=== PATIENT | female | born 1940 | race Two or more races ===

== ENCOUNTER → 2017-03-21 | Outpatient (CLI) | payer MEDICARE ==
[2017-03-21 15:06] LABS: Blood Urea Nitrogen 13 mg/dL (7-17); Non-African American GFR(MDRD) >60 (>60 ml/min/1.73 sqM)
--- NOTE | 2017-03-21 16:40 | CT ---
EXAMINATION TYPE: CT abdomen pelvis w con DATE OF EXAM: 03/21/2017 COMPARISON: NONE HISTORY: 76-year-old female incomplete colonoscopy, hx of anemia TECHNIQUE: Contiguous axial scanning of the abdomen and pelvis following administration of 100 ml Omn ipaque 300 IV contrast. Delayed images through the kidneys and coronal/sagittal reconstructions perf ormed. CT DLP: 1541.4 mGycm Automated exposure control for dose reduction was used. FINDINGS: A right ventricular pacer lead is seen. The heart itself is borderline enlarged without pericardial e ffusion. Strandy atelectasis in the lower lungs without pleural effusion. Small hiatal hernia. No focal liver lesion or biliary ductal dilatation. Portal venous system is patent. Gallbladder, adrenal glands,, and mildly atrophic pancreas show no gross abnormal mobility. A few cody cified granulomas within the spleen with a couple small anterior splenules. 1.6 cm cyst in the upper pole right kidney. Subcentimeter hypodensity posterior lower pole left kidne y is too small for accurate CT characterization and could represent an additional cyst. No dilated small bowel, free fluid, or free air. Normal appendix. There is focal fold thickening in t he upper cecum/lower ascending colon, coronal image 31, axial image 40, and sagittal image 30. Oral c ontrast has progressed through the hepatic flexure. Couple diverticula are noted in the sigmoid colon . Mild to moderate atherosclerotic calcifications within the abdominal aorta and iliac arteries. Tiny f atty umbilical hernia. Severe streak and beam hardening artifacts from the patient's bilateral total hip arthroplasties limi ting visualization of the pelvis. There appears to be pelvic floor relaxation with inferior bulging o f the bladder to the level of the introitus remaining pelvic structures are poorly visualized. Bones: There is extensive heterogeneity of the sacrum with diffuse cortical and trabecular thickening and suggestion of some bony expansion. Degenerative changes throughout the visualized spine with gr bri 1 anterolisthesis at L3-L4. There is otherwise, no osseous destructive process seen. IMPRESSION: 1. NO EVIDENCE FOR FREE FLUID OR FREE AIR. 2. FOCAL FOLD THICKENING AT THE JUNCTION OF THE CECUM AND ASCENDING COLON, CORONAL IMAGE 31 AND AXIAL IMAGE 40. DIRECT VISUALIZATION COULD EXCLUDE A NEOPLASTIC ETIOLOGY. IT NOT AMENABLE TO COLONOSCOPY, CONSIDER SHORT INTERVAL FOLLOW-UP CT. 3. ABNORMAL APPEARANCE TO THE BONY SACRUM. THERE IS CORTICAL AND TRABECULAR THICKENING. FINDINGS ARE SUSPICIOUS FOR PAGET'S DISEASE. CORRELATE FOR ANY PRIOR HISTORY OF RADIATION TO THE PELVIS POST RA DIATION THERAPY CHANGE CAN HAVE A SIMILAR APPEARANCE. 4. SMALL HIATAL HERNIA AND TINY FATTY UMBILICAL HERNIA. 5. PELVIC FLOOR RELAXATION WITH CYSTOCELE.
== END | disposition home or self-care (01) ==
LOC: RADCTMAIN 14:43
PROVIDERS: ATTEND Surgery
DX: D64.9 Anemia, unspecified (principal); Z53.8 Procedure and treatment not carried out for other reasons
CPT/HCPCS: 82565; 84520; 74177; Q9967

== ENCOUNTER → 2017-03-21 | Day surgery (SDC) | payer BC, MEDICARE ==
[2017-03-19 12:09] VITALS: BMI 38.5
[~2017-03-21] MED LIST: GLUCAGON 1 MG/ML VIAL ONE; IOHEXOL 350 MG/ML 25 ML BOTTLE (ORAL USE) PO PRN; LACTATED RINGERS 1,000 ML IV SCH; LIDOCAINE 1% 20 ML VIAL (10MG/ML) FOR IV START INTRADERMA ONE; PROPOFOL 10 MG/ML 20 ML VIAL IV ONE; RX INFO: IV CONTRAST WAS GIVEN 1 EACH MISC MISCELLANE PRN
[2017-03-21 11:04] VITALS: RESP 18; TEMP 96.8
--- NOTE | 2017-03-21 12:31 | P.GSHP ---
History of Present Illness H&P Date: 03/21/17 Chief Complaint: Anemia screening colonoscopy This a 76-year-old female who presents today for EGD and colonoscopy. She's never had a colonoscopy before. She's had issues with anemia. Past Medical History Past Medical History: Hyperlipidemia, Hypertension, Osteoarthritis (OA) Additional Past Medical History / Comment(s): SOB, hiatal hernia, anemia, hx slow heart rate History of Any Multi-Drug Resistant Organisms: None Reported Past Surgical History: Hysterectomy, Joint Replacement, Pacemaker Additional Past Surgical History / Comment(s): danielle hip replacement Past Anesthesia/Blood Transfusion Reactions: No Reported Reaction Type of Cardiac Device: Permanent Pacemaker Device Placement Date:: 2014 Smoking Status: Former smoker - Past Family History Mother Family Medical History: Cancer Medications and Allergies Home Medications Medication Instructions Recorded Confirmed Type Allopurinol [Zyloprim] 100 mg PO DAILY 03/19/17 03/21/17 History Atorvastatin [Lipitor] 20 mg PO HS 03/19/17 03/21/17 History Celecoxib [CeleBREX] 200 mg PO DAILY 03/19/17 03/21/17 History Ergocalciferol [Vitamin D2] 25,000 unit PO TU 03/19/17 03/21/17 History Furosemide [Lasix] 40 mg PO DAILY 03/19/17 03/21/17 History Levothyroxine Sodium [Synthroid] 50 mcg PO DAILY 03/19/17 03/21/17 History Potassium Chloride [Klor-Con 20] 20 meq PO DAILY 03/19/17 03/21/17 History amLODIPine [Norvasc] 5 mg PO DAILY 03/19/17 03/21/17 History Allergies Allergy/AdvReac Type Severity Reaction Status Date / Time No Known Allergies Allergy Verified 03/19/17 11:57 Surgical - Exam Vital Signs Temp Pulse Resp BP Pulse Ox 96.8 F L 89 18 174/77 96 03/21/17 10:56 03/21/17 10:56 03/21/17 10:56 03/21/17 10:56 03/21/17 10:56 - General well developed, no distress - Eyes PERRL - ENT normal pinna - Neck no masses - Respiratory normal expansion - Cardiovascular Rhythm: regular - Abdomen Abdomen: soft, non tender Assessment and Plan Plan: Anemia we will perform EGD and initial screening colonoscopy.
--- NOTE | 2017-03-21 12:56 | P.OP ---
Date of Procedure: 03/21/17 Preoperative Diagnosis: Anemia Screening colonoscopy Postoperative Diagnosis: mild antral gastritis Hiatal hernia Mild esophagitis Rectal polyp Incomplete colonoscopy Procedure(s) Performed: EGD Colonoscopy Implants: Anesthesia: MAC Surgeon: Dioni Weinstein Pathology: other (Antrum, esophagus, rectal polyp) Condition: stable Disposition: PACU Indications for Procedure: Operative Findings: Description of Procedure: Patient's placed on the endoscopy table lateral position. She received IV sedation. The gastroscope some placed oropharynx passed into the esophagus and into the stomach. The scope was then placed through the pylorus. The first and second portion duodenum appeared normal. Scope was then brought back and the antrum and this appeared mildly inflamed a biopsies performed. The scope was retroflexed and remainder of the stomach appeared normal. There was a hiatal hernia seen. The GE junction was at 38 cm. The distal esophagus appeared mildly inflamed and a biopsies performed. The proximal esophagus appeared normal. Scope was withdrawn for patient. Next digital rectal exam was performed there were no abnormalities noted. The flexible colonoscope was then placed patient anus in the rectum there is small polyp seen this removed with snare. Scope then advanced the remainder of the rectum and sigmoid colon appeared normal. The scope 90 passed beyond the sigmoid colon secondary to tortuosity the valve. This with the scope was withdrawn and the pediatric scope was reinserted in it to could not be passed beyond the 40 cm sumeet of the colon. Several times made to maneuver the scope however this wasn't possible. At this point scope withdrawn. The sigmoid colon appeared normal. In the rectum the previous biopsy site was visualized. There is no bleeding seen. The scope was withdrawn for patient. The patient was scheduled for a computed tomography scan of the abdomen pelvis.
[2017-03-21 13:30] VITALS: BP 162/73; PULSE 77
== END | disposition home or self-care (01) ==
LOC: ORWHC2ENDO 09:54
PROVIDERS: ATTEND Surgery
DX: Z12.11 Encounter for screening for malignant neoplasm of colon (principal); K29.50 Unspecified chronic gastritis without bleeding; K20.9 Esophagitis, unspecified; D12.8 Benign neoplasm of rectum; K44.9 Diaphragmatic hernia without obstruction or gangrene; Q43.8 Other specified congenital malformations of intestine; D64.9 Anemia, unspecified; E78.5 Hyperlipidemia, unspecified; I10 Essential (primary) hypertension; M19.90 Unspecified osteoarthritis, unspecified site; E07.9 Disorder of thyroid, unspecified; Z95.0 Presence of cardiac pacemaker; Z79.899 Other long term (current) drug therapy; Z87.891 Personal history of nicotine dependence
CPT/HCPCS: 88305; 88342; 43239; 45331; J1610; J2704; 45385

== ENCOUNTER → 2017-06-30 | Outpatient (CLI) | payer MEDICARE ==
[2017-06-30 12:26] LABS: Blood Urea Nitrogen 23 mg/dL (7-17); Non-African American GFR(MDRD) 60 (>60 ml/min/1.73 sqM)
--- NOTE | 2017-06-30 15:36 | CT ---
EXAMINATION TYPE: CT abdomen pelvis w con DATE OF EXAM: 06/30/2017 COMPARISON: March 21, 2017. HISTORY: Colon polyps CT DLP: 1434 mGycm CONTRAST: CT scan of the abdomen and pelvis is performed with Oral Contrast and with IV Contrast, patient injec dimple with 100 ml mL of Omnipaque 300. FINDINGS: LUNG BASES-: No visible nodule. No infiltrate. Small fixed sliding-type hiatal hernia noted. LIVER/GB: No calcified gallstones. The gallbladder is contracted. No space occupying hepatic lesion . Biliary tree is of normal caliber. PANCREAS: No inflammation. No distinct mass. SPLEEN: No splenic enlargement. No lesion seen. Splenic granulomas noted. ADRENALS: No nodule. No thickening. KIDNEYS/BLADDER: No hydronephrosis. No nephrolithiasis. Upper pole right renal cyst measuring 1.4 cm. Urinary bladder grossly unremarkable. BOWEL: Normal appendix. Normal bowel caliber. No inflammation. Persistent wall thickening in the re gion of the cecum. Underlying malignancy is not excluded. Mild scattered fecal stasis. GENITAL ORGANS: No gross abnormality. LYMPH NODES: No greater than 1cm abdominal or pelvic lymph nodes are appreciated. AORTA: No significant abnormality. OSSEOUS STRUCTURES: Stable probable odontoid changes to the sacrum. Bilateral hip prostheses. OTHER: No significant additional abnormality is seen. IMPRESSION: 1. Persistent wall thickening in the region of the cecum. Underlying malignancy is not excluded. 2. Small fixed hiatal hernia. Small umbilical hernia. 3. 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
== END | disposition home or self-care (01) ==
LOC: RADCTMAIN 11:26
PROVIDERS: ATTEND Surgery
DX: K42.9 Umbilical hernia without obstruction or gangrene (principal); K44.9 Diaphragmatic hernia without obstruction or gangrene; K63.89 Other specified diseases of intestine
CPT/HCPCS: 82565; 84520; 74177; 36415; Q9967

== ENCOUNTER → 2018-10-01 | Outpatient (CLI) | payer MEDICARE ==
--- NOTE | 2018-10-01 12:25 | CT ---
EXAMINATION TYPE: CT abdomen pelvis wo/w con DATE OF EXAM: 10/01/2018 COMPARISON: 06/30/2017 HISTORY: Cecal mass CT DLP: 2228 mGycm Automated exposure control for dose reduction was used. CONTRAST: CT scan of the abdomen pelvis is performed without and with IV Contrast, patient injected with 100 mL of Isovue 300. FINDINGS- LUNG BASES-the heart is enlarged and there are cardiac leads pleural-based nodule right middle lobe i mage 4 2 mm.. LIVER/GB- No gross abnormality is appreciated. PANCREAS- No gross abnormality is seen. SPLEEN-splenic granuloma incidentally noted. Accessory spleen noted.. ADRENALS- No gross abnormality is seen. KIDNEYS/BLADDER-there are hypodensities involving the kidneys bilaterally majority which are too smal l to characterize. The largest is seen in the upper pole measuring greater than a centimeter and 7 Ho unsfield units compatible with a simple cyst. There is a exophytic lesion off the lower pole the left kidney which does not meet the criteria of a simple cyst measuring 7 mm retrospectively stable from the exam of 2017 and 2016.. BOWEL-there is a large area of concentric wall thickening involving the right colon suspicious for a colonic neoplasm.. LYMPH NODES-there is a soft tissue conglomerate adjacent to the suspected cecal mass compatible with numerous lymph nodes the largest which measures 2.9 x 1.4 cm compatible with pathologic adenopathy. OSSEOUS STRUCTURES-assessment the pelvis limited by extreme artifact from bilateral hip prostheses. M ultilevel severe degenerative disc disease of the vertebral column. Lucency involving the sacrum is n oted is retrospectively stable on multiple prior exams. Scoliotic curvature noted. OTHER- atherosclerotic change of the aorta. No diagnostic evidence of aneurysm. Atherosclerotic harper ge of the mesenteric vasculature. Tiny fat-containing umbilical hernia noted. Correlate for cystocele . Stable deformity of a lower posterolateral rib likely the basis of remote trauma. IMPRESSION- 1. Right colonic mass near the junction of the cecum and ascending colon with adjacent pathologic bri nopathy. Correlate for history of malignancy. 2. Abnormal appearance of the bony sacrum is stable dating back to 2017. Lucent changes with cortical disruption are stable. Could be on the basis of previous irradiation, Paget's disease or bony metast ases. Correlate clinically. 3. 2 mm subpleural right middle lobe pulmonary nodule too small to characterize. 4. Stable exophytic lesion lower pole left kidney does not meet the criteria of a simple cyst. Ultras ound correlation could be obtained.
== END | disposition home or self-care (01) ==
LOC: RADCTMAIN 09:42
PROVIDERS: ATTEND Family Medicine
DX: K63.89 Other specified diseases of intestine (principal); R93.7 Abnormal findings on diagnostic imaging of other parts of musculoskeletal system
CPT/HCPCS: 82565; 84520; 74178; 36415; Q9967

== ENCOUNTER 2018-10-19 08:46 | Day surgery (SDC) | payer MEDICARE ==
[2018-10-15 13:38] VITALS: BMI 31.7
[~2018-10-19 08:46] MED LIST changes: -GLUCAGON 1 MG/ML VIAL ONE; -IOHEXOL 350 MG/ML 25 ML BOTTLE (ORAL USE) PO PRN; -LACTATED RINGERS 1,000 ML IV SCH; -LIDOCAINE 1% 20 ML VIAL (10MG/ML) FOR IV START INTRADERMA ONE; +LIDOCAINE 1% 20 ML VIAL (10MG/ML) FOR IV START INTRADERMA PRN; -PROPOFOL 10 MG/ML 20 ML VIAL IV ONE; -RX INFO: IV CONTRAST WAS GIVEN 1 EACH MISC MISCELLANE PRN
[2018-10-19 09:09] VITALS: RESP 16; TEMP 97.6
[2018-10-19] MEDS: LACTATED RINGERS 1,000 ML IV SCH ×2 (09:13→11:12)
[2018-10-19] MEDS ORDERED: PROPOFOL 10 MG/ML 20 ML VIAL IV ONE (11:12)
[2018-10-19] MEDS ORDERED: GLUCAGON 1 MG/ML VIAL ONE (11:12)
[2018-10-19] MEDS ORDERED: LIDOCAINE 1% INJ 10MG/ML (20 ML MDV) ONE (11:12)
--- NOTE | 2018-10-19 11:22 | P.GSHP ---
History of Present Illness H&P Date: 10/19/18 Chief Complaint: Right colon mass This a 78-year-old female who underwent recent CAT scan. She's found have suspicious mass on the right colon. She presents today for colonoscopy. Patient denies any significant GI complaints. She denies any nausea, vomiting, abdominal pain or GI bleed. Past Medical History Past Medical History: Hyperlipidemia, Hypertension, Osteoarthritis (OA) Additional Past Medical History / Comment(s): possible "rectal mass" per daughter, SOB with activity, hiatal hernia, hx anemia, History of Any Multi-Drug Resistant Organisms: None Reported Past Surgical History: Hysterectomy, Joint Replacement, Pacemaker Additional Past Surgical History / Comment(s): danielle hip replacement Past Anesthesia/Blood Transfusion Reactions: No Reported Reaction Type of Cardiac Device: Permanent Pacemaker Device Placement Date:: 2014 Smoking Status: Former smoker - Past Family History Mother Family Medical History: Cancer Medications and Allergies Home Medications Medication Instructions Recorded Confirmed Type Allopurinol [Zyloprim] 100 mg PO DAILY 03/19/17 10/19/18 History Atorvastatin [Lipitor] 20 mg PO HS 03/19/17 10/19/18 History Celecoxib [CeleBREX] 200 mg PO DAILY 03/19/17 10/19/18 History Ergocalciferol [Vitamin D2] 25,000 unit PO TU 03/19/17 10/19/18 History Furosemide [Lasix] 40 mg PO DAILY 03/19/17 10/19/18 History Levothyroxine Sodium [Synthroid] 50 mcg PO DAILY 03/19/17 10/19/18 History Potassium Chloride [Klor-Con 20] 20 meq PO DAILY 03/19/17 10/19/18 History amLODIPine [Norvasc] 5 mg PO DAILY 03/19/17 10/19/18 History Ferrous Sulfate [Feosol] 325 mg PO DAILY 10/15/18 10/19/18 History Allergies Allergy/AdvReac Type Severity Reaction Status Date / Time No Known Allergies Allergy Verified 10/15/18 13:31 Surgical - Exam Vital Signs Temp Pulse Resp BP Pulse Ox 97.6 F 93 16 155/70 97 10/19/18 09:02 10/19/18 09:02 10/19/18 09:02 10/19/18 09:02 10/19/18 09:02 - General well developed, well nourished, no distress - Eyes PERRL - ENT normal pinna - Neck no masses - Respiratory normal expansion - Cardiovascular Rhythm: regular - Abdomen Abdomen: soft, non tender Assessment and Plan Assessment: Right colon mass. We'll perform colonoscopy.
--- NOTE | 2018-10-19 11:34 | P.OP ---
Date of Procedure: 10/19/18 Preoperative Diagnosis: Right colon mass Postoperative Diagnosis: Tortuous colon Diverticulosis Procedure(s) Performed: Colonoscopy Anesthesia: MAC Surgeon: Dioni Weinstein Pathology: none sent Condition: stable Disposition: PACU Description of Procedure: The patient's placed on the endoscopy table in the lateral position. She received IV sedation. Digital rectal exam was performed which revealed no abnormalities. Flexible colonoscope was then placed patient anus and passed throughout the colon. The scope could not be passed beyond the descending colon secondary to tortuosity valve. The sigmoid colon was quite tortuous. Several times made to maneuver the scope. However this and possible. This point scope was withdrawn. The descending and; had a few scattered diverticula. The scope was then brought back the rectum and this appeared normal. Scope withdrawn for patient. The patient's recent CAT scan shows a suspicious right colon mass. Patient will be advised undergo exploratory laparotomy and right colectomy.
[2018-10-19 11:49] VITALS: BP 129/68; PULSE 71
== END 2018-10-19 12:48 | disposition home or self-care (01) ==
LOC: ORWHC2ENDO 08:46
PROVIDERS: ATTEND Surgery
DX: R93.3 Abnormal findings on diagnostic imaging of other parts of digestive tract (principal); K63.89 Other specified diseases of intestine; Q43.8 Other specified congenital malformations of intestine; K57.30 Diverticulosis of large intestine without perforation or abscess without bleeding; I11.0 Hypertensive heart disease with heart failure; I50.9 Heart failure, unspecified; E07.9 Disorder of thyroid, unspecified; E78.5 Hyperlipidemia, unspecified; M19.90 Unspecified osteoarthritis, unspecified site; K44.9 Diaphragmatic hernia without obstruction or gangrene; D64.9 Anemia, unspecified; R06.02 Shortness of breath; Z95.0 Presence of cardiac pacemaker; Z79.899 Other long term (current) drug therapy; Z79.1 Long term (current) use of non-steroidal anti-inflammatories (NSAID); Z79.890 Hormone replacement therapy; Z87.891 Personal history of nicotine dependence; Z96.643 Presence of artificial hip joint, bilateral
CPT/HCPCS: 45378; J1610; J2001; J2704

== ENCOUNTER 2018-10-20 09:14 | Inpatient (IN) | payer MEDICARE ==
[2018-10-19 14:22] VITALS: BMI 31.7
[~2018-10-20 09:14] MED LIST changes: +DEXAMETHASONE SOD PHOSPHATE 10 MG/ML 1 ML VIAL IV ONE; +HYDROmorphone 0.5 MG/0.5 ML SYRINGE IVP PRN; -LIDOCAINE 1% 20 ML VIAL (10MG/ML) FOR IV START INTRADERMA PRN; +MIDAZOLAM (PF) 2 MG/2 ML VIAL IV PRN; +ONDANSETRON 4 MG/2 ML VIAL IVP PRN; +ceFAZolin IN SWFI 2 GM/20 ML SYRINGE IVP ONE; +metroNIDAZOLE-NS PMX 500 MG in SALINE 1 100ML.BAG IVPB ONE
[2018-10-20] MEDS: LACTATED RINGERS 1,000 ML IV SCH ×2 (09:54→11:37)
[2018-10-20] MEDS ORDERED: LIDOCAINE 1% 20 ML VIAL (10MG/ML) FOR IV START INTRADERMA ONE (09:54)
[2018-10-20 10:12] LABS: Basophils % (A) 0 %; Eosinophils # (A) 0.2 k/uL (0-0.7); Eosinophils % (A) 4 %; HGB 11.6 gm/dL (11.4-16.0); Hypochromasia Slight; Lymphocytes # (A) 0.9 k/uL (1.0-4.8); Lymphocytes % (A) 15 %; MCH 30.8 pg (25.0-35.0); MCHC 31.4 g/dL (31.0-37.0); MCV 98.2 fL (80.0-100.0); Mean Platelet Volume 7.2; Monocytes # (A) 0.4 k/uL (0-1.0); Monocytes % (A) 6 %; Neutrophils # (A) 4.1 k/uL (1.3-7.7); Neutrophils % (A) 73 %; Platelet Count 269 k/uL (150-450); RBC 3.77 m/uL (3.80-5.40); WBC 5.6 k/uL (3.8-10.6)
[2018-10-20] MEDS: ONDANSETRON 4 MG/2 ML VIAL IVP ONE ×2 (10:20→15:31)
[2018-10-20 10:22] LABS: Anion Gap 7 mmol/L; Blood Urea Nitrogen 13 mg/dL (7-17); Calcium 9.8 mg/dL (8.4-10.2); Carbon Dioxide 24 mmol/L (22-30); Chloride 107 mmol/L (98-107); Glucose 96 mg/dL (74-99); Potassium 3.9 mmol/L (3.5-5.1); Sodium 138 mmol/L (137-145)
[2018-10-20 10:25] LABS: INR 0.9 (<1.2); Prothrombin Time 10.1 sec (9.0-12.0)
[2018-10-20] MEDS ORDERED: fentaNYL (PF) 50 MCG/ML 2 ML AMP IVP ONE (11:06)
--- NOTE | 2018-10-20 11:20 | P.GSHP ---
History of Present Illness H&P Date: 10/20/18 Chief Complaint: Right colon mass Asst. a 78-year-old female who underwent recent CAT scan. Patient's found have evidence of a right colon mass. Patient presents today for right colectomy. Patient is aware the risks of surgery including wound infection, bleeding and possible colostomy Past Medical History Past Medical History: Hyperlipidemia, Hypertension, Osteoarthritis (OA) Additional Past Medical History / Comment(s): possible "rectal mass" per daughter, SOB with activity, hiatal hernia, hx anemia, History of Any Multi-Drug Resistant Organisms: None Reported Past Surgical History: Hysterectomy, Joint Replacement, Pacemaker Additional Past Surgical History / Comment(s): danielle hip replacement, colonoscopy 10/19/18 Past Anesthesia/Blood Transfusion Reactions: No Reported Reaction Type of Cardiac Device: Permanent Pacemaker Device Placement Date:: 2014 Past Psychological History: No Psychological Hx Reported Smoking Status: Former smoker Past Alcohol Use History: None Reported Additional Past Alcohol Use History / Comment(s): quit smoking over 25 yrs, smoked since age 19, < 1 PPD Past Drug Use History: None Reported - Past Family History Mother Family Medical History: Cancer Medications and Allergies Home Medications Medication Instructions Recorded Confirmed Type Allopurinol [Zyloprim] 100 mg PO DAILY 03/19/17 10/20/18 History Atorvastatin [Lipitor] 20 mg PO HS 03/19/17 10/20/18 History Celecoxib [CeleBREX] 200 mg PO DAILY 03/19/17 10/20/18 History Ergocalciferol [Vitamin D2] 25,000 unit PO TU 03/19/17 10/20/18 History Furosemide [Lasix] 40 mg PO DAILY 03/19/17 10/20/18 History Levothyroxine Sodium [Synthroid] 50 mcg PO DAILY 03/19/17 10/20/18 History Potassium Chloride [Klor-Con 20] 20 meq PO DAILY 03/19/17 10/20/18 History amLODIPine [Norvasc] 5 mg PO DAILY 03/19/17 10/20/18 History Ferrous Sulfate [Feosol] 325 mg PO DAILY 10/15/18 10/20/18 History Albuterol Inhaler [Ventolin Hfa 1 - 2 puff INHALATION DIRECTED 10/19/18 10/20/18 History Inhaler] PRN Allergies Allergy/AdvReac Type Severity Reaction Status Date / Time No Known Allergies Allergy Verified 10/20/18 09:41 Surgical - Exam Vital Signs Temp Pulse Resp BP Pulse Ox 97.8 F 79 20 133/59 97 10/20/18 09:59 10/20/18 09:59 10/20/18 09:59 10/20/18 09:59 10/20/18 09:59 - General well developed, well nourished, no distress - Eyes PERRL - ENT normal pinna - Neck no masses - Respiratory normal expansion - Cardiovascular Rhythm: regular - Abdomen Abdomen: soft, non tender Results - Labs 10/20/18 09:51 10/20/18 09:51 Abnormal Lab Results - Last 24 Hours (Table) 10/20/18 Range/Units 09:51 RBC 3.77 L (3.80-5.40) m/uL Lymphocytes # 0.9 L (1.0-4.8) k/uL Diabetes panel 10/20/18 Range/Units 09:51 Sodium 138 (137-145) mmol/L Potassium 3.9 (3.5-5.1) mmol/L Chloride 107 (98-107) mmol/L Carbon Dioxide 24 (22-30) mmol/L BUN 13 (7-17) mg/dL Creatinine 0.70 (0.52-1.04) mg/dL Glucose 96 (74-99) mg/dL Calcium 9.8 (8.4-10.2) mg/dL Calcium panel 10/20/18 Range/Units 09:51 Calcium 9.8 (8.4-10.2) mg/dL Pituitary panel 10/20/18 Range/Units 09:51 Sodium 138 (137-145) mmol/L Potassium 3.9 (3.5-5.1) mmol/L Chloride 107 (98-107) mmol/L Carbon Dioxide 24 (22-30) mmol/L BUN 13 (7-17) mg/dL Creatinine 0.70 (0.52-1.04) mg/dL Glucose 96 (74-99) mg/dL Calcium 9.8 (8.4-10.2) mg/dL Adrenal panel 10/20/18 Range/Units 09:51 Sodium 138 (137-145) mmol/L Potassium 3.9 (3.5-5.1) mmol/L Chloride 107 (98-107) mmol/L Carbon Dioxide 24 (22-30) mmol/L BUN 13 (7-17) mg/dL Creatinine 0.70 (0.52-1.04) mg/dL Glucose 96 (74-99) mg/dL Calcium 9.8 (8.4-10.2) mg/dL Assessment and Plan Assessment: Right colon mass. Patient will undergo exploratory laparotomy with right colectomy.
[2018-10-20] MEDS ORDERED: NEOSTIGMINE 1 MG/ML 10 ML VIAL ONE (11:40)
[2018-10-20] MEDS ORDERED: GLYCOPYRROLATE 0.2 MG/ML 2 ML VIAL ONE (11:40)
[2018-10-20] MEDS ORDERED: fentaNYL (PF) 50 MCG/ML 2 ML AMP ONE (11:40)
[2018-10-20] MEDS ORDERED: LIDOCAINE 1% INJ 10MG/ML (20 ML MDV) ONE (11:40)
[2018-10-20] MEDS ORDERED: PHENYLEPHRINE-0.9% NACL SYG 1 MG/10 ML SYRINGE ONE (11:40)
[2018-10-20] MEDS ORDERED: HEPARIN SODIUM,PORCINE 5,000 UNIT/ML 1 ML VIAL ONE (11:40)
[2018-10-20] MEDS ORDERED: SUCCINYLCHOLINE CHLORIDE 100 MG/5 ML SYR IV ONE (11:40)
[2018-10-20] MEDS ORDERED: PROPOFOL 10 MG/ML 20 ML VIAL IV ONE (11:40)
[2018-10-20] MEDS ORDERED: ROCURONIUM BROMIDE 10 MG/ML 10 ML VIAL IV ONE (11:40)
[2018-10-20] MEDS ORDERED: ROPIVACAINE 400 MG, HYDROMORPHONE (PF) 5 MG in SODIUM CHLORIDE 0.9% 170 ML EPIDURAL PRN (11:45)
[2018-10-20] MEDS ORDERED: NALOXONE 0.4 MG/ML 1 ML VIAL IV PRN (11:45)
[2018-10-20] MEDS ORDERED: LACTATED RINGERS 1,000 ML IV ONE (12:14)
[2018-10-20] MEDS ORDERED: HYDROmorphone 1 MG/ML 1 ML SYRINGE IVP PRN (12:45)
[2018-10-20] MEDS ORDERED: METOCLOPRAMIDE 5 MG/ML 2 ML VIAL IVP PRN (12:45)
[2018-10-20] MEDS ORDERED: ONDANSETRON 4 MG/2 ML VIAL IVP PRN (12:45)
[2018-10-20] MEDS ORDERED: BENZOCAINE/MENTHOL LOZENG 1 EACH LOZENGE MUCOUS MEM PRN (12:45)
--- NOTE | 2018-10-20 12:45 | P.OP ---
Date of Procedure: 10/20/18 Preoperative Diagnosis: Right colon mass Postoperative Diagnosis: Right colon mass Procedure(s) Performed: Right colectomy Anesthesia: PRACHI Surgeon: Dioni Weinstein Estimated Blood Loss (ml): 20 Pathology: other (Right colon) Condition: stable Disposition: PACU Description of Procedure: The patient's placed the operative table in the supine position. She received general anesthesia. Her abdomen was prepped and draped in the usual sterile fashion. The abdomen was entered through a midline incision. The Bookwalter retractor was placed in the wound. The abdomen was explored. The liver appeared normal. Stomach appeared normal. The small bowel appeared normal. In the right ascending colon there was a mass which was suspicious for a colon cancer. At the remainder of the colon appeared normal. At this point it was decided to perform a right colectomy. The terminal ileum was transected with a GI stapler and then the proximal transverse colon was transected with a GI stapler. Using the Enseal device the mesentery the bowel was divided. A [id number] functional end-to-end staple anastomosis was then created between the terminal ileum and proximal transverse colon. A 3-0 GI silk suture was used as a crotch stitch. The abdomen was irrigated. There is no leading seen. Clean instruments were then used to close the fascia. The fascia was closed with looped #1 PDS suture. The skin was closed mustapha. Patient top she will well and was sent to recovery room stable condition.
[2018-10-20] MEDS ORDERED: SODIUM CHLORIDE 0.9% 500 ML 500 ML IV ONE (15:30)
[2018-10-20] MEDS: D5-0.45% NACL WITH KCL 20MEQ/L 1,000 ML IV SCH ×2 (15:35→23:59)
--- NOTE | 2018-10-20 16:04 | P.CONS ---
History of Present Illness - Reason for Consult Consult date: 10/20/18 Medical management Requesting physician: Dioni Weinstein - History of Present Illness This is a 78-year-old female patient of Dr. Herrera. Patient presented today for an elective right colectomy for right colon mass. Per patient and family patient has had issues with right colon mass for the past year and a half. Patient reports this all started due to patient's anemia Original computed tomography scan performed in March 2017. Patient reports at that time a colonoscopy was attempted but was unsuccessful. patient reports that she has had 3 follow-up CT scans. Last computed tomography scan performed on 10/01/2018 showing a right colonic mass near the junction of the cecum and ascending colon with adjacent pathological adenopathy. Patient has known past medical history of hyperlipidemia, hypertension, osteoarthritis, permanent pacemaker placement in 2014 in which she follows with [facility]. At this time patient is resting comfortably in bed post surgery. Patient is nothing by mouth at this time. Home meds currently on hold. A.m. labs have been ordered. Patient denies [place] vomiting or diarrhea. Bowel sounds currently absent at this time. Patient's blood pressure 90 systolically. Patient to receive fluid bolus from surgical services. Patient denies chest pain or shortness of breath. Patient denies any urinary burning or frequency. Review of Systems Please refer to HPI otherwise unremarkable Past Medical History Past Medical History: Hyperlipidemia, Hypertension, Osteoarthritis (OA) Additional Past Medical History / Comment(s): possible "rectal mass" per daughter, SOB with activity, hiatal hernia, hx anemia, History of Any Multi-Drug Resistant Organisms: None Reported Past Surgical History: Hysterectomy, Joint Replacement, Pacemaker Additional Past Surgical History / Comment(s): danielle hip replacement, colonoscopy 10/19/18 Past Anesthesia/Blood Transfusion Reactions: No Reported Reaction Type of Cardiac Device: Permanent Pacemaker Device Placement Date:: 2014 Past Psychological History: No Psychological Hx Reported Smoking Status: Former smoker Past Alcohol Use History: None Reported Additional Past Alcohol Use History / Comment(s): quit smoking over 25 yrs, smoked since age 19, < 1 PPD Past Drug Use History: None Reported - Past Family History Mother Family Medical History: Cancer Medications and Allergies Home Medications Medication Instructions Recorded Confirmed Type Allopurinol [Zyloprim] 100 mg PO DAILY 03/19/17 10/20/18 History Atorvastatin [Lipitor] 20 mg PO HS 03/19/17 10/20/18 History Celecoxib [CeleBREX] 200 mg PO DAILY 03/19/17 10/20/18 History Ergocalciferol [Vitamin D2] 50,000 unit PO TU 03/19/17 10/20/18 History Furosemide [Lasix] 40 mg PO DAILY 03/19/17 10/20/18 History Levothyroxine Sodium [Synthroid] 50 mcg PO DAILY 03/19/17 10/20/18 History Potassium Chloride [Klor-Con 20] 20 meq PO DAILY 03/19/17 10/20/18 History amLODIPine [Norvasc] 5 mg PO DAILY 03/19/17 10/20/18 History Ferrous Sulfate [Feosol] 325 mg PO DAILY 10/15/18 10/20/18 History Albuterol Inhaler [Ventolin Hfa 1 - 2 puff INHALATION RT-DAILY PRN 10/19/18 10/20/18 History Inhaler] Allergies Allergy/AdvReac Type Severity Reaction Status Date / Time No Known Allergies Allergy Verified 10/20/18 14:28 Physical Exam Vitals: Vital Signs Temp Pulse Pulse Pulse Resp BP Pulse Ox 10/20/18 15:23 65 14 91/51 94 L 10/20/18 13:31 60 16 96/49 96 10/20/18 13:16 68 14 111/54 97 10/20/18 13:00 68 14 115/57 99 10/20/18 12:55 97.3 F L 66 14 120/57 99 10/20/18 11:25 80 20 110/59 96 10/20/18 09:59 97.8 F 79 20 133/59 97 Intake and Output 10/20/18 10/20/18 10/20/18 06:59 14:59 22:59 Intake Total 1800 Output Total 150 Balance 1650 Intake: IV 1800 Output: Urine 100 Estimated Blood Loss 50 Head normocephalic Neck supple Lungs clear to auscultation bilaterally no wheezing or crackles Heart regular rate and rhythm S1-S2, no rub or gallop Abdomen wound VAC to midline abdominal incision. Site is clean dry and intact. Abdomen is soft and nontender. Bowel sounds currently absent Extremities no edema Neuro alert and orientated to 3 Results CBC & Chem 7: 10/20/18 09:51 03/12/19 09:51 Labs: Abnormal Lab Results - Last 24 Hours (Table) 10/20/18 Range/Units 09:51 RBC 3.77 L (3.80-5.40) m/uL Lymphocytes # 0.9 L (1.0-4.8) k/uL Assessment and Plan Assessment: 1. Status post right colectomy with Dr. Weinstein for right colon mass. Patient is currently nothing by mouth at this time. Patient is currently postop day 0 2. History of hyperlipidemia 3. History of essential hypertension. At this time patient is having blood pressures with systolics in the 90s. 500 mL bolus ordered per surgical services. Home blood pressure meds currently on hold 4. History of osteoarthritis 5. History of permanent pacemaker placement in 2014. Patient reports she follows with [facility] Thank you for this consultation we will continue to follow patient closely throughout stay A.m. labs have been ordered. Time with Patient: Greater than 30 (Greater than 60% of the total time spent in counseling and coordination of care. I performed an examination of the patient and discussed their management with the Nurse Practitioner. I have reviewed the Nurse Practitioner's notes and agree with the documented findings and plan of care)
[2018-10-20] MEDS: FAMOTIDINE 20 MG/2 ML VIAL IV SCH (22:04)
[2018-10-21] MEDS: HEPARIN SODIUM,PORCINE 5,000 UNIT/ML 1 ML VIAL SQ SCH ×4 (01:44→23:33)
[2018-10-21] MEDS: D5-0.45% NACL WITH KCL 20MEQ/L 1,000 ML IV SCH ×3 (04:53→20:38)
[2018-10-21] MEDS: FAMOTIDINE 20 MG/2 ML VIAL IV SCH ×2 (08:05→20:31)
[2018-10-21] MEDS: ALVIMOPAN 12 MG CAPSULE PO SCH ×2 (08:05→20:30)
[2018-10-21] MEDS: LACTATED RINGERS 1,000 ML IV SCH (08:05)
[2018-10-21 08:47] LABS: ALT 27 U/L (9-52); AST 17 U/L (14-36); Albumin 2.9 g/dL (3.5-5.0); Alkaline Phosphatase 113 U/L (38-126); Anion Gap 4 mmol/L; Blood Urea Nitrogen 14 mg/dL (7-17); Calcium 8.9 mg/dL (8.4-10.2); Carbon Dioxide 27 mmol/L (22-30); Chloride 106 mmol/L (98-107); Glucose 136 mg/dL (74-99); Potassium 4.2 mmol/L (3.5-5.1); Sodium 137 mmol/L (137-145); Total Bilirubin 0.3 mg/dL (0.2-1.3); Total Protein 5.2 g/dL (6.3-8.2)
[2018-10-21 09:33] LABS: Basophils % (A) 0 %; Eosinophils % (A) 1 %; HCT 32.2 % (34.0-46.0); Hypochromasia Marked; Lymphocytes # (A) 0.3 k/uL (1.0-4.8); Lymphocytes % (A) 5 %; MCH 31.7 pg (25.0-35.0); MCHC 30.7 g/dL (31.0-37.0); MCV 103.1 fL (80.0-100.0); Macrocytosis Slight; Mean Platelet Volume 7.4; Monocytes # (A) 0.4 k/uL (0-1.0); Monocytes % (A) 6 %; Neutrophils # (A) 5.6 k/uL (1.3-7.7); Neutrophils % (A) 88 %; Platelet Count 188 k/uL (150-450); RBC 3.13 m/uL (3.80-5.40); RDW 12.7 % (11.5-15.5); WBC 6.4 k/uL (3.8-10.6)
[2018-10-21 09:35] LABS: HGB 9.9 gm/dL (11.4-16.0)
[2018-10-21] MEDS ORDERED: ALBUTEROL NEBULIZED 2.5 MG/3 ML INHALATION PRN (10:04)
--- NOTE | 2018-10-21 10:07 | P.PN ---
Progress Note - Text Progress Note Date: 10/21/18 Patient is a 78 y.o. s/p exploratory laparotomy pod 1. Thoracic epidural placed for post op pain control. VAS = 0, doing well. Rate lowered overnight because of some confusion which resolved. Continue current RX.
--- NOTE | 2018-10-21 10:16 | P.PN ---
Subjective Progress Note Date: 10/21/18 This is a 78-year-old female patient of Dr. Herrera. Patient presented today for an elective right colectomy for right colon mass. Per patient and family patient has had issues with right colon mass for the past year and a half. Patient reports this all started due to patient's anemia Original computed tomography scan performed in March 2017. Patient reports at that time a colonoscopy was attempted but was unsuccessful. patient reports that she has had 3 follow-up CT scans. Last computed tomography scan performed on 10/01/2018 showing a right colonic mass near the junction of the cecum and ascending colon with adjacent pathological adenopathy. Patient has known past medical history of hyperlipidemia, hypertension, osteoarthritis, permanent pacemaker placement in 2014 in which she follows with [facility]. At this time patient is resting comfortably in bed post surgery. Patient is nothing by mouth at this time. Home meds currently on hold. A.m. labs have been ordered. Patient denies nausea vomiting or diarrhea. Bowel sounds currently absent at this time. Patient's blood pressure 90 systolically. Patient to receive fluid bolus from surgical services. Patient denies chest pain or shortness of breath. Patient denies any urinary burning or frequency. On 10/21/2018 patient's alert and oriented 3. Patient currently sitting up in chair. At this time patient denies chest pain or shortness breath. Patient denies nausea vomiting or diarrhea. Patient denies any urinary burning or frequency. Patient is having hypoactive bowel sounds. Discussed case with surgical TECHNICAL SUPPORT ENGINEER rate. Okay to resume home medications at this time. Patient is currently restricted. Per surgical team likely will advance diet later today. Objective - Vital Signs Vital signs: Vital Signs Temp 97.7 F 10/21/18 09:02 Pulse 61 10/21/18 09:02 Resp 15 10/21/18 09:02 BP 102/62 10/21/18 09:02 Pulse Ox 97 10/21/18 09:02 Intake & Output 10/20/18 10/21/18 10/21/18 18:59 06:59 18:59 Intake Total 1800 898.75 Output Total 150 Balance 1650 898.75 Intake: IV 1800 Intake, IV Titration 898.75 Amount D5-0.45% NaCl with KCl 875 20Meq/l 1,000 ml @ 125 mls/hr IV .Q8H [facility] Rx#: [id number] Ropivacaine 400 mg 23.75 Hydromorphone (Pf) 5 mg In Sodium Chloride 0.9% 170 ml @ Per Protocol EPIDURAL .Q0M PRN Rx#: [id number] Output: Urine 100 Estimated Blood Loss 50 Other: Voiding Method Indwelling Catheter Indwelling Catheter Indwelling Catheter - Exam Head normocephalic Neck supple Lungs clear to auscultation bilaterally no wheezing or crackles Heart regular rate and rhythm S1-S2, no rub or gallop Abdomen wound VAC to midline abdominal incision. Site is clean dry and intact. Abdomen is soft and nontender. Bowel sounds hypoactive Neuro alert and orientated to 3 - Labs CBC & Chem 7: 10/21/18 07:15 10/21/18 07:15 Labs: Abnormal Lab Results - Last 24 Hours (Table) 10/20/18 10/21/18 10/21/18 Range/Units 09:51 07:15 07:15 RBC 3.77 L 3.13 L (3.80-5.40) m/uL Hgb 9.9 L D (11.4-16.0) gm/dL Hct 32.2 L (34.0-46.0) % MCV 103.1 H (80.0-100.0) fL MCHC 30.7 L (31.0-37.0) g/dL Lymphocytes # 0.9 L 0.3 L (1.0-4.8) k/uL Glucose 136 H (74-99) mg/dL Total Protein 5.2 L (6.3-8.2) g/dL Albumin 2.9 L (3.5-5.0) g/dL Assessment and Plan Assessment: 1. Status post right colectomy with Dr. Weinstein for right colon mass. Patient is currently nothing by mouth at this time. Patient is currently postop day 1. Patient is currently on ice chips per surgical team. I will likely be completed today. Okay to resume home meds per surgical services. 2. History of hyperlipidemia 3. History of essential hypertension. At this time patient is having blood pressures with systolics in the 90s. 500 mL bolus ordered per surgical services. Blood pressure improved. Norvasc resumed with parameters 4. History of osteoarthritis 5. History of permanent pacemaker placement in 2014. Patient reports she follows with [facility] 6. Acute blood loss anemia secondary to surgery. Hemoglobin 9.9. Patient's home dose of care sulfate has been resumed we'll continue to monitor Thank you for this consultation we will continue to follow patient closely throughout stay A.m. labs have been ordered. DVT prophylaxis heparin. GI prophylaxis Protonix I performed an examination of the patient and discussed their management with the Nurse Practitioner. I have reviewed the Nurse Practitioner's notes and agree with the documented findings and plan of care
[2018-10-21] MEDS: LEVOTHYROXINE 50 MCG TAB PO SCH (10:51)
[2018-10-21] MEDS: FUROSEMIDE 40 MG TAB PO SCH (10:51)
--- NOTE | 2018-10-21 11:44 | P.PN ---
Subjective Progress Note Date: 10/21/18 CHIEF COMPLAINT: colon mass HISTORY OF PRESENT ILLNESS: Patient is status post right colectomy secondary to right colon mass. POD #1. Patient is sitting up in the chair. She denies any pain at this time. Epidural infusion at 2 mL an hour, which was decreased overnight due to some confusion. Confusion has since resolved. Patient denies nausea or vomiting. Vital signs are stable. WBC 6.4. Hemoglobin 9.9. PHYSICAL EXAM: VITAL SIGNS: Currently stable. GENERAL: Well-developed in no acute distress. HEENT: No sclera icterus. Extraocular movements grossly intact. Moist buccal mucosa. Head is atraumatic, normocephalic. Hears conversational speech. No nasal drainage. NECK: Supple without lymphadenopathy. CHEST: Non-labored respirations and equal bilateral excursions. CARDIOVASCULAR: Regular rate with regular rhythm. Palpable 2+ radial pulses. ABDOMEN: Soft. Nondistended. PREVENA system in place to midline incision. MUSCULOSKELETAL: No clubbing, cyanosis or edema. NEUROLOGIC: No focal or lateralizing signs. Cranial nerves II through XII grossly intact. PSYCH: Appropriate affect. Alert and oriented to person, place and time. SKIN: Well perfused. Good skin turgor. ASSESSMENT: 1. Right colon mass, s/p right colectomy PLAN: 1. Patient may begin on ice chips and popsicles 2. May advance to clear liquid diet when patient begins passing flatus. 3. Continue epidural at current rate and catheter. We will discontinue POD #3 4. Activity as tolerated. Patient encouraged to be OOB and ambulatory 5. Incentive spirometry 6. Await pathology report Nurse practitioner note has been reviewed by physician. Signing provider agrees with the documented findings, assessment, and plan of care. Objective - Vital Signs Vital signs: Vital Signs Temp 97.7 F 10/21/18 09:02 Pulse 61 10/21/18 09:02 Resp 15 10/21/18 09:02 BP 102/62 10/21/18 09:02 Pulse Ox 97 10/21/18 09:02 Intake & Output 10/20/18 10/21/18 10/21/18 18:59 06:59 18:59 Intake Total 1800 898.75 Output Total 150 Balance 1650 898.75 Intake: IV 1800 Intake, IV Titration 898.75 Amount D5-0.45% NaCl with KCl 875 20Meq/l 1,000 ml @ 125 mls/hr IV .Q8H [facility] Rx#: [id number] Ropivacaine 400 mg 23.75 Hydromorphone (Pf) 5 mg In Sodium Chloride 0.9% 170 ml @ Per Protocol EPIDURAL .Q0M PRN Rx#: [id number] Output: Urine 100 Estimated Blood Loss 50 Other: Voiding Method Indwelling Catheter Indwelling Catheter Indwelling Catheter - Labs CBC & Chem 7: 10/21/18 07:15 10/21/18 07:15 Labs: Abnormal Lab Results - Last 24 Hours (Table) 10/21/18 10/21/18 Range/Units 07:15 07:15 RBC 3.13 L (3.80-5.40) m/uL Hgb 9.9 L D (11.4-16.0) gm/dL Hct 32.2 L (34.0-46.0) % MCV 103.1 H (80.0-100.0) fL MCHC 30.7 L (31.0-37.0) g/dL Lymphocytes # 0.3 L (1.0-4.8) k/uL Glucose 136 H (74-99) mg/dL Total Protein 5.2 L (6.3-8.2) g/dL Albumin 2.9 L (3.5-5.0) g/dL
[2018-10-21] MEDS ORDERED: SODIUM CHLORIDE 0.9% 500 ML 500 ML IV ONE (13:47)
[2018-10-21] MEDS: ATORVASTATIN 20 MG TAB PO SCH (20:31)
[2018-10-22] MEDS: D5-0.45% NACL WITH KCL 20MEQ/L 1,000 ML IV SCH ×3 (05:19→20:40)
[2018-10-22] MEDS: LEVOTHYROXINE 50 MCG TAB PO SCH (05:23)
[2018-10-22] MEDS: LACTATED RINGERS 1,000 ML IV SCH (07:37)
[2018-10-22 08:08] LABS: Basophils % (A) 0 %; Eosinophils # (A) 0.1 k/uL (0-0.7); Eosinophils % (A) 1 %; HCT 34.4 % (34.0-46.0); HGB 10.2 gm/dL (11.4-16.0); Hypochromasia Moderate; Lymphocytes # (A) 0.4 k/uL (1.0-4.8); Lymphocytes % (A) 5 %; MCH 29.8 pg (25.0-35.0); MCHC 29.7 g/dL (31.0-37.0); MCV 100.4 fL (80.0-100.0); Mean Platelet Volume 7.2; Monocytes # (A) 0.5 k/uL (0-1.0); Monocytes % (A) 6 %; Neutrophils # (A) 7.2 k/uL (1.3-7.7); Neutrophils % (A) 87 %; Platelet Count 214 k/uL (150-450); RBC 3.43 m/uL (3.80-5.40); RDW 12.8 % (11.5-15.5); WBC 8.3 k/uL (3.8-10.6)
[2018-10-22] MEDS: FUROSEMIDE 40 MG TAB PO SCH (08:35)
[2018-10-22] MEDS: HEPARIN SODIUM,PORCINE 5,000 UNIT/ML 1 ML VIAL SQ SCH ×2 (08:35→15:16)
[2018-10-22] MEDS: MELOXICAM 7.5 MG TAB PO SCH (08:35)
[2018-10-22] MEDS: ALLOPURINOL 100 MG TAB PO SCH (08:35)
[2018-10-22] MEDS: amLODIPine 5 MG TAB PO SCH (08:35)
[2018-10-22] MEDS: ALVIMOPAN 12 MG CAPSULE PO SCH ×2 (08:35→20:29)
[2018-10-22] MEDS: FAMOTIDINE 20 MG/2 ML VIAL IV SCH ×2 (08:35→20:30)
[2018-10-22 08:51] LABS: Anion Gap 7 mmol/L; Blood Urea Nitrogen 11 mg/dL (7-17); Carbon Dioxide 24 mmol/L (22-30); Chloride 105 mmol/L (98-107); Glucose 117 mg/dL (74-99); Sodium 136 mmol/L (137-145)
[2018-10-22 08:52] LABS: ALT 25 U/L (9-52); AST 20 U/L (14-36); Albumin 3.1 g/dL (3.5-5.0); Alkaline Phosphatase 130 U/L (38-126); Total Bilirubin 0.5 mg/dL (0.2-1.3); Total Protein 5.6 g/dL (6.3-8.2)
[2018-10-22] MEDS ORDERED: FERROUS SULFATE 325 MG TAB PO SCH (09:00)
--- NOTE | 2018-10-22 11:05 | P.PN ---
Subjective Progress Note Date: 10/22/18 CHIEF COMPLAINT: colon mass HISTORY OF PRESENT ILLNESS: Patient is status post right colectomy secondary to right colon mass. POD #2. Apparently the patient became more confused and combative overnight. Epidural is currently infusing at 1 mL/h. Patient's daugh ter is at the bedside and is extremely concerned about the patient's confusion. She is asking about removing the epidural. Patient is sitting up in the chair. Pleasantly confused. Not agitated or combative. Tolerating ice chips and popsicles. Denies passing flatus. Denies nausea or vomiting. PHYSICAL EXAM: VITAL SIGNS: Currently stable. GENERAL: Well-developed in no acute distress. HEENT: No sclera icterus. Extraocular movements grossly intact. Moist buccal mucosa. Head is atraumatic, normocephalic. Hears conversational speech. No nasal drainage. NECK: Supple without lymphadenopathy. CHEST: Non-labored respirations and equal bilateral excursions. CARDIOVASCULAR: Regular rate with regular rhythm. Palpable 2+ radial pulses. ABDOMEN: Soft. Nondistended. PREVENA system in place to midline incision. MUSCULOSKELETAL: No clubbing, cyanosis or edema. NEUROLOGIC: No focal or lateralizing signs. Cranial nerves II through XII grossly intact. PSYCH: Appropriate affect. Alert and oriented to person. SKIN: Well perfused. Good skin turgor. ASSESSMENT: 1. Right colon mass, s/p right colectomy PLAN: 1. Continue ice chips and popsicles 2. May advance to clear liquid diet when patient begins passing flatus. 3. Discontinue epidural and dias per Dr. Weinstein 4. Activity as tolerated. Patient encouraged to be OOB and ambulatory 5. Incentive spirometry 6. Await pathology report Nurse practitioner note has been reviewed by physician. Signing provider agrees with the documented findings, assessment, and plan of care. Objective - Vital Signs Vital signs: Vital Signs Temp 98.0 F 10/22/18 06:47 Pulse 62 10/22/18 06:47 Resp 16 10/22/18 10:01 BP 133/69 10/22/18 06:47 Pulse Ox 95 10/22/18 06:47 Intake & Output 10/21/18 10/22/18 10/22/18 18:59 06:59 18:59 Intake Total 14.467 1000 Output Total 641 843 5200 Balance -185.533 300 -1200 Intake: Intake, IV Titration 14.467 1000 Amount D5-0.45% NaCl with KCl 1000 20Meq/l 1,000 ml @ 125 mls/hr IV .Q8H [facility] Rx#: [id number] Ropivacaine 400 mg 14.467 Hydromorphone (Pf) 5 mg In Sodium Chloride 0.9% 170 ml @ Per Protocol EPIDURAL .Q0M PRN Rx#: [id number] Output: Urine 969 249 7249 Other: Voiding Method Indwelling Catheter Indwelling Catheter - Labs CBC & Chem 7: 10/22/18 07:02 10/22/18 07:02 Labs: Abnormal Lab Results - Last 24 Hours (Table) 10/22/18 10/22/18 Range/Units 07:02 07:02 RBC 3.43 L (3.80-5.40) m/uL Hgb 10.2 L (11.4-16.0) gm/dL MCV 100.4 H (80.0-100.0) fL MCHC 29.7 L (31.0-37.0) g/dL Lymphocytes # 0.4 L (1.0-4.8) k/uL Sodium 136 L (137-145) mmol/L Glucose 117 H (74-99) mg/dL Alkaline Phosphatase 130 H (38-126) U/L Total Protein 5.6 L (6.3-8.2) g/dL Albumin 3.1 L (3.5-5.0) g/dL
--- NOTE | 2018-10-22 11:16 | P.PN ---
Progress Note - Text Progress Note Date: 10/22/18 Postoperative day 2, status post right colectomy, epidural catheter placed for postoperative analgesia, patient was confused overnight and epidural catheter was discontinued, to remove any other cause of confusion, epidural site looked okay, is no lower extremity weakness
--- NOTE | 2018-10-22 11:36 | P.PN ---
Subjective Progress Note Date: 10/22/18 This is a 78-year-old female patient of Dr. Herrera. Patient presented today for an elective right colectomy for right colon mass. Per patient and family patient has had issues with right colon mass for the past year and a half. Patient reports this all started due to patient's anemia Original computed tomography scan performed in March 2017. Patient reports at that time a colonoscopy was attempted but was unsuccessful. patient reports that she has had 3 follow-up CT scans. Last computed tomography scan performed on 10/01/2018 showing a right colonic mass near the junction of the cecum and ascending colon with adjacent pathological adenopathy. Patient has known past medical history of hyperlipidemia, hypertension, osteoarthritis, permanent pacemaker placement in 2014 in which she follows with [facility]. At this time patient is resting comfortably in bed post surgery. Patient is nothing by mouth at this time. Home meds currently on hold. A.m. labs have been ordered. Patient denies nausea vomiting or diarrhea. Bowel sounds currently absent at this time. Patient's blood pressure 90 systolically. Patient to receive fluid bolus from surgical services. Patient denies chest pain or shortness of breath. Patient denies any urinary burning or frequency. On 10/21/2018 patient's alert and oriented 3. Patient currently sitting up in chair. At this time patient denies chest pain or shortness breath. Patient denies nausea vomiting or diarrhea. Patient denies any urinary burning or frequency. Patient is having hypoactive bowel sounds. Discussed case with surgical IN ROOM DINING SERVER rate. Okay to resume home medications at this time. Patient is currently restricted. Per surgical team likely will advance diet later today. On 10/22/2018 patient's alert and oriented 3 now. Patient apparently had some confusion throughout night. Per patient's daughter at bedside patient has not slept in 48 hours. Epidural has been removed this a.m. Patient is still not passing gas. Patient remains nothing by mouth. Patient denies chest pain or shortness of breath. Patient denies nausea vomiting or diarrhea. Patient denies any urinary burning or frequency. Objective - Vital Signs Vital signs: Vital Signs Temp 98.0 F 10/22/18 06:47 Pulse 62 10/22/18 06:47 Resp 16 10/22/18 10:01 BP 133/69 10/22/18 06:47 Pulse Ox 95 10/22/18 06:47 Intake & Output 10/21/18 10/22/18 10/22/18 18:59 06:59 18:59 Intake Total 14.467 1000 Output Total 143 572 3168 Balance -185.533 300 -1200 Intake: Intake, IV Titration 14.467 1000 Amount D5-0.45% NaCl with KCl 1000 20Meq/l 1,000 ml @ 125 mls/hr IV .Q8H [facility] Rx#: [id number] Ropivacaine 400 mg 14.467 Hydromorphone (Pf) 5 mg In Sodium Chloride 0.9% 170 ml @ Per Protocol EPIDURAL .Q0M [facility] Rx#: [id number] Output: Urine 288 114 1362 Other: Voiding Method Indwelling Catheter Indwelling Catheter - Exam Head normocephalic Neck supple Lungs clear to auscultation bilaterally no wheezing or crackles Heart regular rate and rhythm S1-S2, no rub or gallop Abdomen wound VAC to midline abdominal incision. Site is clean dry and intact. Abdomen is soft and nontender. Bowel sounds hypoactive Neuro alert and orientated to 3 - Labs CBC & Chem 7: 10/22/18 07:02 10/22/18 07:02 Labs: Abnormal Lab Results - Last 24 Hours (Table) 10/22/18 10/22/18 Range/Units 07:02 07:02 RBC 3.43 L (3.80-5.40) m/uL Hgb 10.2 L (11.4-16.0) gm/dL MCV 100.4 H (80.0-100.0) fL MCHC 29.7 L (31.0-37.0) g/dL Lymphocytes # 0.4 L (1.0-4.8) k/uL Sodium 136 L (137-145) mmol/L Glucose 117 H (74-99) mg/dL Alkaline Phosphatase 130 H (38-126) U/L Total Protein 5.6 L (6.3-8.2) g/dL Albumin 3.1 L (3.5-5.0) g/dL Assessment and Plan Assessment: 1. Status post right colectomy with Dr. Weinstein for right colon mass. Patient is currently nothing by mouth at this time. Patient is currently postop day 1. Patient is currently on ice chips per surgical team. I will likely be completed today. Okay to resume home meds per surgical services. Patient remains nothing by mouth at this time. Dr. Ochoa has been consulted. 2. History of hyperlipidemia 3. History of essential hypertension. At this time patient is having blood pressures with systolics in the 90s. 500 mL bolus ordered per surgical services. Blood pressure improved. Norvasc resumed with parameters 4. History of osteoarthritis 5. History of permanent pacemaker placement in 2014. Patient reports she follows with [facility] 6. expected Acute blood loss anemia secondary to surgery. Hemoglobin 9.9. Continue to monitor 7. Increased confusion throughout night. Epidural has been DC'd this AM. We'll continue to monitor closely Thank you for this consultation we will continue to follow patient closely throughout stay DVT prophylaxis heparin. GI prophylaxis Protonix I performed an examination of the patient and discussed their management with the Nurse Practitioner. I have reviewed the Nurse Practitioner's notes and agree with the documented findings and plan of care
[2018-10-22] MEDS ORDERED: HYDROcodone/APAP 7.5-325MG 1 EACH TAB PO PRN (13:00)
[2018-10-22] MEDS: ATORVASTATIN 20 MG TAB PO SCH (20:29)
[2018-10-22] MEDS: LORazepam 2 MG/ML INJ IV PRN (21:38)
--- NOTE | 2018-10-22 23:18 | P.CONS ---
History of Present Illness - Reason for Consult Consult date: 10/22/18 Renal Mass Requesting physician: Tori Velazquez - Chief Complaint Elective surgery for colectomy - History of Present Illness Ms Brennan is a pleasant WF, with overall well controlled medical problems. Her CBC in 05/26 was normal, with a Hgb of 12.3, and MCV of 93. On 08/20/16, hgb was 10, with MCV of 88, and then 7.4, with MCV of 71 on 02/06/17. She had an EGD and colonoscopy on 03/21/17. EGD was negative with biopsy showing chronic gastritis/esophagitis. Colonoscopy showed a polyp in the sigmoid with biopsy positive for tubular adenoma. However, the scope could not be advanced beyond the sigmoid due to tortuosity. Per the family, she had a CT done, with a f/u recommended in 3 mths. She started an iron pill over the counter after her endoscopies. She was then referred to Dr. rapp for evaluation and recommendations. She denied any prior h/o blood problems, or obvious bleeding. It was felt that she likely had iron deficiency anemia, related to her gastritis and/or small bowel AVM related blood loss. She received 1 U PRBC for a Hgb of 6.9, and was started on PO FeSO4 [address] colonography in 04/27 showed a fold vs possible mass. Repeat CT was done on 06/30/17, which was apparently negative. Her hemoglobin remained stable and she continued on close monitoring and serial CTS. More recently CT Scan in September revealed Right Colonic ,ass near cecum junction with some abnormal bony sacrum and stable lesion noted in left lower renal pole. Because of the changed and suspicious findings she was admitted for an elective right colectomy for right colon mass. Per patient and family patient has had issues with right colon mass for the past year and a half. Patient reports this all started due to patient's anemia Original computed tomography scan performed in March 2017. Patient reports at that time a colonoscopy was attempted but was unsuccessful. She has had 3 follow-up CT scans. Last computed tomography scan performed on 10/01/2018 showing a right colonic mass near the junction of the cecum and ascending colon with adjacent pathological adenopathy. Patient has known past medical history of hyperlipidemia, hypertension, osteoarthritis, permanent pacemaker placement in 2014 in which she follows with [facility]. She is status Post surgery and awaiting pathology. She has not had BM since surgery, had some confusion throughout night. Hematology has been consulted in anticipation of the need for Parental iron and/or care of diagnosis of malignancy. Review of Systems A 14 point review of systems assessed and completed and all negative except HPI. Past Medical History Past Medical History: Hyperlipidemia, Hypertension, Osteoarthritis (OA) Additional Past Medical History / Comment(s): possible "rectal mass" per daughter, SOB with activity, hiatal hernia, hx anemia, History of Any Multi-Drug Resistant Organisms: None Reported Past Surgical History: Hysterectomy, Joint Replacement, Pacemaker Additional Past Surgical History / Comment(s): zen hip replacement, colonoscopy 10/19/18 Past Anesthesia/Blood Transfusion Reactions: No Reported Reaction Type of Cardiac Device: Permanent Pacemaker Device Placement Date:: 2014 Past Psychological History: No Psychological Hx Reported Smoking Status: Former smoker Past Alcohol Use History: None Reported Additional Past Alcohol Use History / Comment(s): quit smoking over 25 yrs, smoked since age 19, < 1 PPD Past Drug Use History: None Reported - Past Family History Mother Family Medical History: Cancer Medications and Allergies Home Medications Medication Instructions Recorded Confirmed Type Allopurinol [Zyloprim] 100 mg PO DAILY 03/19/17 10/20/18 History Atorvastatin [Lipitor] 20 mg PO HS 03/19/17 10/20/18 History Celecoxib [CeleBREX] 200 mg PO DAILY 03/19/17 10/20/18 History Ergocalciferol [Vitamin D2] 50,000 unit PO TU 03/19/17 10/20/18 History Furosemide [Lasix] 40 mg PO DAILY 03/19/17 10/20/18 History Levothyroxine Sodium [Synthroid] 50 mcg PO DAILY 03/19/17 10/20/18 History Potassium Chloride [Klor-Con 20] 20 meq PO DAILY 03/19/17 10/20/18 History amLODIPine [Norvasc] 5 mg PO DAILY 03/19/17 10/20/18 History Ferrous Sulfate [Feosol] 325 mg PO DAILY 10/15/18 10/20/18 History Albuterol Inhaler [Ventolin Hfa 1 - 2 puff INHALATION RT-DAILY PRN 10/19/18 10/20/18 History Inhaler] Allergies Allergy/AdvReac Type Severity Reaction Status Date / Time No Known Allergies Allergy Verified 10/20/18 14:28 Physical Exam Vitals: Vital Signs Temp Pulse Resp BP Pulse Ox 10/22/18 10:01 16 10/22/18 06:47 98.0 F 62 16 133/69 95 10/22/18 03:28 16 10/21/18 23:34 97.7 F 83 16 119/58 96 10/21/18 19:52 97.5 F L 84 15 121/69 97 10/21/18 14:44 72 114/62 Intake and Output 10/21/18 10/22/18 10/22/18 22:59 06:59 14:59 Intake Total 1000 700 Output Total 143 330 3011 Balance 800 -500 -500 Intake: Intake, IV Titration 1000 700 Amount D5-0.45% NaCl with KCl 1000 700 20Meq/l 1,000 ml @ 100 mls/hr IV .Q10H EVAN Rx#: [id number] Output: Urine 631 359 [id number] Other: Voiding Method Indwelling Catheter Indwelling Catheter Gen: Alert, Sleepy Head: NC, NT Neck Supple, Trachea Midline Lungs: CTA Zen Abd: Tender firm evidence of surgery Heart RRR, S1 Ext some edema, mild gen. Neuro - No Sensory or motor deficits noted Results CBC & Chem 7: 10/22/18 07:02 10/22/18 07:02 Labs: Abnormal Lab Results - Last 24 Hours (Table) 10/22/18 10/22/18 Range/Units 07:02 07:02 RBC 3.43 L (3.80-5.40) m/uL Hgb 10.2 L (11.4-16.0) gm/dL MCV 100.4 H (80.0-100.0) fL MCHC 29.7 L (31.0-37.0) g/dL Lymphocytes # 0.4 L (1.0-4.8) k/uL Sodium 136 L (137-145) mmol/L Glucose 117 H (74-99) mg/dL Alkaline Phosphatase 130 H (38-126) U/L Total Protein 5.6 L (6.3-8.2) g/dL Albumin 3.1 L (3.5-5.0) g/dL CT scan - abdomen: report reviewed CT scan - chest: report reviewed CT scan - pelvis: report reviewed Assessment and Plan Plan: Assessment and recommendations: 1. Right Colonic Mass near Cecum: - Originally found 2017, been monitoring since, persistent anemia and symptoms decided on further treatment with removal. - Await Final Pathology for further recommendations 2. Macrocytic Anemia: Requiring Parental Iron Infusions - May require after discharge - Monitor CBC Physcian Attestation: I have completed the full history and physical and devloped the above impression and plan, agree with dictation dictated as a scribe.
[2018-10-22] MEDS ORDERED: HALOPERIDOL LACTATE 5 MG/ML 1 ML VIAL IVP STA (23:52)
[2018-10-22] MEDS ORDERED: HALOPERIDOL LACTATE 5 MG/ML 1 ML VIAL IM STA (23:57)
[2018-10-23] MEDS: HEPARIN SODIUM,PORCINE 5,000 UNIT/ML 1 ML VIAL SQ SCH ×4 (01:23→23:16)
[2018-10-23] MEDS: LEVOTHYROXINE 50 MCG TAB PO SCH (04:33)
[2018-10-23] MEDS: D5-0.45% NACL WITH KCL 20MEQ/L 1,000 ML IV SCH ×2 (07:21→21:42)
[2018-10-23 08:36] LABS: Basophils % (A) 0 %; Eosinophils # (A) 0.2 k/uL (0-0.7); Eosinophils % (A) 3 %; HCT 32.6 % (34.0-46.0); HGB 10.2 gm/dL (11.4-16.0); Hypochromasia Slight; Lymphocytes # (A) 0.7 k/uL (1.0-4.8); Lymphocytes % (A) 12 %; MCHC 31.4 g/dL (31.0-37.0); MCV 98.8 fL (80.0-100.0); Mean Platelet Volume 6.8; Monocytes # (A) 0.5 k/uL (0-1.0); Monocytes % (A) 8 %; Neutrophils # (A) 4.5 k/uL (1.3-7.7); Neutrophils % (A) 75 %; Platelet Count 210 k/uL (150-450); RBC 3.29 m/uL (3.80-5.40); RDW 12.6 % (11.5-15.5)
[2018-10-23 08:37] LABS: ALT 21 U/L (9-52); AST 24 U/L (14-36); Albumin 3.1 g/dL (3.5-5.0); Alkaline Phosphatase 125 U/L (38-126); Anion Gap 7 mmol/L; Blood Urea Nitrogen 6 mg/dL (7-17); Calcium 9.1 mg/dL (8.4-10.2); Carbon Dioxide 27 mmol/L (22-30); Chloride 101 mmol/L (98-107); Glucose 104 mg/dL (74-99); Potassium 3.6 mmol/L (3.5-5.1); Sodium 135 mmol/L (137-145); Total Bilirubin 0.7 mg/dL (0.2-1.3); Total Protein 5.7 g/dL (6.3-8.2)
[2018-10-23] MEDS: ALLOPURINOL 100 MG TAB PO SCH (11:14)
[2018-10-23] MEDS: ALVIMOPAN 12 MG CAPSULE PO SCH ×2 (11:14→21:42)
[2018-10-23] MEDS: FUROSEMIDE 40 MG TAB PO SCH (11:14)
[2018-10-23] MEDS: FAMOTIDINE 20 MG/2 ML VIAL IV SCH (11:15)
[2018-10-23] MEDS: MELOXICAM 7.5 MG TAB PO SCH (11:15)
[2018-10-23] MEDS: amLODIPine 5 MG TAB PO SCH (11:15)
--- NOTE | 2018-10-23 12:27 | P.PN ---
Subjective Progress Note Date: 10/23/18 CHIEF COMPLAINT: colon mass HISTORY OF PRESENT ILLNESS: Patient is status post right colectomy secondary to right colon mass. POD #3. Patient sitting up in the chair. She denies pain or discomfort. Denies nausea or vomiting. Denies passing flatus. No BM. Pathology report discussed with patients daughter. Oncology has been consulted. PHYSICAL EXAM: VITAL SIGNS: Currently stable. GENERAL: Well-developed in no acute distress. HEENT: No sclera icterus. Extraocular movements grossly intact. Moist buccal mucosa. Head is atraumatic, normocephalic. Hears conversational speech. No nasal drainage. NECK: Supple without lymphadenopathy. CHEST: Non-labored respirations and equal bilateral excursions. CARDIOVASCULAR: Regular rate with regular rhythm. Palpable 2+ radial pulses. ABDOMEN: Soft. Nondistended. PREVENA system in place to midline incision. MUSCULOSKELETAL: No clubbing, cyanosis or edema. NEUROLOGIC: No focal or lateralizing signs. Cranial nerves II through XII grossly intact. PSYCH: Appropriate affect. Alert and oriented to person. SKIN: Well perfused. Good skin turgor. ASSESSMENT: 1. Right colon mass, s/p right colectomy PLAN: 1. Continue ice chips and popsicles 2. May advance to clear liquid diet when patient begins passing flatus. 3. Activity as tolerated. Patient encouraged to be OOB and ambulatory 4. Incentive spirometry Nurse practitioner note has been reviewed by physician. Signing provider agrees with the documented findings, assessment, and plan of care. Objective - Vital Signs Vital signs: Vital Signs Temp 97.8 F 10/23/18 07:00 Pulse 87 10/23/18 07:00 Resp 18 10/23/18 07:00 BP 154/83 10/23/18 07:00 Pulse Ox 97 10/23/18 07:00 Intake & Output 10/22/18 10/23/18 10/23/18 18:59 06:59 18:59 Intake Total 700 1600 Output Total 1300 Balance -600 1600 Intake: Intake, IV Titration 700 1600 Amount D5-0.45% NaCl with KCl 700 1600 20Meq/l 1,000 ml @ 100 mls/hr IV .Q10H EVAN Rx#: [id number] Output: Urine 1300 Other: Voiding Method Toilet # Voids 1 1 - Labs CBC & Chem 7: 10/23/18 07:53 10/23/18 07:53 Labs: Abnormal Lab Results - Last 24 Hours (Table) 10/23/18 10/23/18 Range/Units 07:53 07:53 RBC 3.29 L (3.80-5.40) m/uL Hgb 10.2 L (11.4-16.0) gm/dL Hct 32.6 L (34.0-46.0) % Lymphocytes # 0.7 L (1.0-4.8) k/uL Sodium 135 L (137-145) mmol/L BUN 6 L (7-17) mg/dL Glucose 104 H (74-99) mg/dL Total Protein 5.7 L (6.3-8.2) g/dL Albumin 3.1 L (3.5-5.0) g/dL
--- NOTE | 2018-10-23 14:56 | P.PN ---
Subjective Progress Note Date: 10/23/18 This is a 78-year-old female patient of Dr. Herrera. Patient presented today for an elective right colectomy for right colon mass. Per patient and family patient has had issues with right colon mass for the past year and a half. Patient reports this all started due to patient's anemia Original computed tomography scan performed in March 2017. Patient reports at that time a colonoscopy was attempted but was unsuccessful. patient reports that she has had 3 follow-up CT scans. Last computed tomography scan performed on 10/01/2018 showing a right colonic mass near the junction of the cecum and ascending colon with adjacent pathological adenopathy. Patient has known past medical history of hyperlipidemia, hypertension, osteoarthritis, permanent pacemaker placement in 2014 in which she follows with [facility]. At this time patient is resting comfortably in bed post surgery. Patient is nothing by mouth at this time. Home meds currently on hold. A.m. labs have been ordered. Patient denies nausea vomiting or diarrhea. Bowel sounds currently absent at this time. Patient's blood pressure 90 systolically. Patient to receive fluid bolus from surgical services. Patient denies chest pain or shortness of breath. Patient denies any urinary burning or frequency. On 10/21/2018 patient's alert and oriented 3. Patient currently sitting up in chair. At this time patient denies chest pain or shortness breath. Patient denies nausea vomiting or diarrhea. Patient denies any urinary burning or frequency. Patient is having hypoactive bowel sounds. Discussed case with surgical COMPUTER TERMINAL OPERATOR . Okay to resume home medications at this time. Patient is currently restricted. Per surgical team likely will advance diet later today. On 10/22/2018 patient's alert and oriented 3 now. Patient apparently had some confusion throughout night. Per patient's daughter at bedside patient has not slept in 48 hours. Epidural has been removed this a.m. Patient is still not passing gas. Patient remains nothing by mouth. Patient denies chest pain or shortness of breath. Patient denies nausea vomiting or diarrhea. Patient denies any urinary burning or frequency. On 10/23/2018 patient's alert and oriented 3 sitting up in chair. Patient is continuing to have occasional confusion at nighttime. Patient did get better sleep last night. Patient also does better when daughter is at bedside. Per surgical services patient may advance to clear diet when patient began passing gas which she has not. At this time patient denies chest pain or shortness breath. Patient denies nausea vomiting or diarrhea. Patient has any urinary burning or frequency Objective - Vital Signs Vital signs: Vital Signs Temp 98.6 F 10/23/18 14:39 Pulse 97 10/23/18 14:39 Resp 17 10/23/18 14:39 BP 137/78 10/23/18 14:39 Pulse Ox 96 10/23/18 14:39 Intake & Output 10/22/18 10/23/18 10/23/18 18:59 06:59 18:59 Intake Total 700 1600 700 Output Total 1300 Balance -600 1600 700 Intake: Intake, IV Titration 700 1600 700 Amount D5-0.45% NaCl with KCl 700 1600 700 20Meq/l 1,000 ml @ 100 mls/hr IV .Q10H EVAN Rx#: [id number] Output: Urine 1300 Other: Voiding Method Toilet Toilet # Voids 1 1 - Exam Head normocephalic Neck supple Lungs clear to auscultation bilaterally no wheezing or crackles Heart regular rate and rhythm S1-S2, no rub or gallop Abdomen wound VAC to midline abdominal incision. Site is clean dry and intact. Abdomen is soft and nontender. Bowel sounds hypoactive Neuro alert and orientated to 3 - Labs CBC & Chem 7: 10/23/18 07:53 10/23/18 07:53 Labs: Abnormal Lab Results - Last 24 Hours (Table) 10/23/18 10/23/18 Range/Units 07:53 07:53 RBC 3.29 L (3.80-5.40) m/uL Hgb 10.2 L (11.4-16.0) gm/dL Hct 32.6 L (34.0-46.0) % Lymphocytes # 0.7 L (1.0-4.8) k/uL Sodium 135 L (137-145) mmol/L BUN 6 L (7-17) mg/dL Glucose 104 H (74-99) mg/dL Total Protein 5.7 L (6.3-8.2) g/dL Albumin 3.1 L (3.5-5.0) g/dL Assessment and Plan Assessment: 1. Status post right colectomy with Dr. Weinstein for right colon mass. Patient is currently nothing by mouth at this time. Patient is currently postop day 4. Patient is currently on ice chips per surgical team. I will likely be completed today. Okay to resume home meds per surgical services. Patient remains nothing by mouth at this time. Per oncology services awaiting final pathology for further recommendation for 2. History of hyperlipidemia 3. History of essential hypertension. At this time patient is having blood pressures with systolics in the 90s. 500 mL bolus ordered per surgical services. Blood pressure improved. Norvasc resumed with parameters 4. History of osteoarthritis 5. History of permanent pacemaker placement in 2014. Patient reports she follows with [facility] 6. expected Acute blood loss anemia secondary to surgery. Hemoglobin 9.9. Continue to monitor 7. Increased confusion throughout night. Epidural has been DC'd this AM. We'll continue to monitor closely. Patient has Ativan when necessary Thank you for this consultation we will continue to follow patient closely throughout stay DVT prophylaxis heparin. GI prophylaxis Protonix I performed an examination of the patient and discussed their management with the Nurse Practitioner. I have reviewed the Nurse Practitioner's notes and agree with the documented findings and plan of care
--- NOTE | 2018-10-23 16:42 | P.PN ---
Subjective Progress Note Date: 10/23/18 Principal diagnosis: New Diagnosis Adenocarcinoma of colon Pathology has resulted, Adenocarcinoma with Muscularis invasion and positive lymph nodes requiring recommended adjuvant treatment. Will ask for Mediport placement if patient is interested in pursuing adjuvant chemotherapy. Objective - Vital Signs Vital signs: Vital Signs Temp 98.6 F 10/23/18 14:39 Pulse 97 10/23/18 14:39 Resp 17 10/23/18 14:39 BP 137/78 10/23/18 14:39 Pulse Ox 96 10/23/18 14:39 Intake & Output 10/22/18 10/23/18 10/23/18 18:59 06:59 18:59 Intake Total 700 1600 700 Output Total 1300 Balance -600 1600 700 Intake: Intake, IV Titration 700 1600 700 Amount D5-0.45% NaCl with KCl 700 1600 700 20Meq/l 1,000 ml @ 100 mls/hr IV .Q10H EVAN Rx#: [id number] Output: Urine 1300 Other: Voiding Method Toilet Toilet # Voids 1 1 - Exam Gen: Alert, Sleepy Head: NC, NT Neck Supple, Trachea Midline Lungs: CTA Zen Abd: Tender firm evidence of surgery Heart RRR, S1 Ext some edema, mild gen. Neuro - No Sensory or motor deficits noted - Labs CBC & Chem 7: 10/23/18 07:53 10/23/18 07:53 Labs: Abnormal Lab Results - Last 24 Hours (Table) 10/23/18 10/23/18 Range/Units 07:53 07:53 RBC 3.29 L (3.80-5.40) m/uL Hgb 10.2 L (11.4-16.0) gm/dL Hct 32.6 L (34.0-46.0) % Lymphocytes # 0.7 L (1.0-4.8) k/uL Sodium 135 L (137-145) mmol/L BUN 6 L (7-17) mg/dL Glucose 104 H (74-99) mg/dL Total Protein 5.7 L (6.3-8.2) g/dL Albumin 3.1 L (3.5-5.0) g/dL Assessment and Plan Plan: Specimen(s) Received A. Colon, Segmental Resection - Ascending Colon Clinical History Renal mass. Exploratory laparotomy and right colectomy. Final Pathologic Diagnosis TERMINAL ILEUM, APPENDIX, CECUM AND ASCENDING COLON, RIGHT HEMICOLECTOMY: 8.8 x 6 cm long circumferential infiltrating moderately differentiated adenocarcinoma with focal mucinous features. The proximal (ileal) margin is positive for adenocarcinoma because of a serosal metastasis in this area. Mesocolic and serosal margins: Close by negative for adenocarcinoma. Ten of twenty two pericolic lymph nodes are positive for metastatic adenocarcinoma with tumor nodules present. See Surgical Pathology Cancer Case Summary. Notes SURGICAL PATHOLOGY CANCER CASE SUMMARY - COLON AND RECTUM: (RESECTION) PROCEDURE: Right hemicolectomy. TUMOR SITE: Right ascending colon. TUMOR SIZE: Greatest dimension: 8 x 6 cm by circumferential. MACROSCOPIC TUMOR PERFORATION: Not identified. MACROSCOPIC INTACTNESS OF MESORECTUM: Complete. HISTOLOGIC TYPE: Adenocarcinoma with focal mucinous differentiation. HISTOLOGIC GRADE: G2, moderately differentiated. TUMOR EXTENSION: Tumor invades through muscularis propria into the silvia colorectal tissue. MARGINS: An invasive serosal based tumor nodule is noted at the proximal (ileal) margin. Other margins including the distal and radial margins of excision are negative for adenocarcinoma. Mucosal based adenocarcinoma is not noted at the margins. TREATMENT EFFECT: No known presurgical therapy. LYMPH-VASCULAR INVASION: Present in small vessels. PERINEURAL INVASION: Not identified. TUMOR BUDDING: Low score. TYPE OF POLYP WHICH INVASIVE ADENOCARCINOMA AROSE: None identified. TUMOR DEPOSITS (DISCONTINUOUS EXTRAMURAL EXTENSION): Focally present with four being identified in the mesenteric and pericolic tissues. REGIONAL LYMPH NODES: NUMBER OF LYMPH NODES INVOLVED: 10. NUMBER OF LYMPH NODES EXAMINED: 22. PATHOLOGIC STAGE CLASSIFICATION (pTNM, AJCC EIGHT EDITION): TNM DESCRIPTORS: PRIMARY TUMOR: pT3. REGIONAL LYMPH NODES: pN2b. DISTANT METASTASIS: pMX. ADDITIONAL PATHOLOGIC FINDINGS: Adenoma. ANCILLARY STUDIES: Microsatellite instability (MSI) studies. The results will be completed and can be found in the patients EMR as a scanned report. Assessment and recommendations: 1. Right Colonic Mass near Cecum: - Originally found 2017, been monitoring since, persistent anemia and symptoms decided on further treatment with removal. - Pathology is positive for Adenocarcinoma with Mucinous Features. Tumor did extend through muscularis Propria therefore adjuvant chemotherapy would be recommended - Pathological staging pT3, N2b, Mx 2. Macrocytic Anemia: Requiring Parental Iron Infusions - May require after discharge - Monitor CBC Physcian Attestation: I have completed the full history and physical and devloped the above impression and plan, agree with dictation dictated as a scribe.
[2018-10-23] MEDS: ATORVASTATIN 20 MG TAB PO SCH (21:42)
[2018-10-23] MEDS: FAMOTIDINE 20 MG TAB PO SCH (21:42)
[2018-10-23] MEDS: LORazepam 2 MG/ML INJ IV PRN (21:42)
[2018-10-24] MEDS: LEVOTHYROXINE 50 MCG TAB PO SCH (05:41)
[2018-10-24] MEDS: D5-0.45% NACL WITH KCL 20MEQ/L 1,000 ML IV SCH ×2 (05:41→14:10)
[2018-10-24] MEDS: ALLOPURINOL 100 MG TAB PO SCH (08:30)
[2018-10-24] MEDS: ALVIMOPAN 12 MG CAPSULE PO SCH ×2 (08:30→22:01)
[2018-10-24] MEDS: amLODIPine 5 MG TAB PO SCH (08:30)
[2018-10-24] MEDS: MELOXICAM 7.5 MG TAB PO SCH (08:30)
[2018-10-24] MEDS: FUROSEMIDE 40 MG TAB PO SCH (08:30)
[2018-10-24] MEDS: HEPARIN SODIUM,PORCINE 5,000 UNIT/ML 1 ML VIAL SQ SCH ×2 (08:30→16:04)
[2018-10-24] MEDS: FAMOTIDINE 20 MG TAB PO SCH ×2 (08:30→22:01)
[2018-10-24 08:33] LABS: ALT 27 U/L (9-52); AST 23 U/L (14-36); Albumin 2.9 g/dL (3.5-5.0); Alkaline Phosphatase 114 U/L (38-126); Anion Gap 6 mmol/L; Blood Urea Nitrogen 4 mg/dL (7-17); Carbon Dioxide 31 mmol/L (22-30); Chloride 100 mmol/L (98-107); Glucose 105 mg/dL (74-99); Potassium 3.6 mmol/L (3.5-5.1); Sodium 137 mmol/L (137-145); Total Bilirubin 0.8 mg/dL (0.2-1.3); Total Protein 5.5 g/dL (6.3-8.2)
[2018-10-24 09:00] LABS: Basophils % (A) 0 %; Eosinophils # (A) 0.5 k/uL (0-0.7); Eosinophils % (A) 11 %; HCT 34.4 % (34.0-46.0); HGB 10.7 gm/dL (11.4-16.0); Lymphocytes # (A) 1.1 k/uL (1.0-4.8); Lymphocytes % (A) 23 %; MCHC 31.1 g/dL (31.0-37.0); MCV 96.5 fL (80.0-100.0); Mean Platelet Volume 7.4; Monocytes # (A) 0.3 k/uL (0-1.0); Monocytes % (A) 7 %; Neutrophils # (A) 2.6 k/uL (1.3-7.7); Neutrophils % (A) 56 %; Platelet Count 226 k/uL (150-450); RBC 3.56 m/uL (3.80-5.40); RDW 12.8 % (11.5-15.5); WBC 4.5 k/uL (3.8-10.6)
--- NOTE | 2018-10-24 10:03 | P.PN ---
Progress Note - Text Progress Note Date: 10/24/18 Patient's input well. She has not any significant flatus. On exam her vital signs are stable. Her abdomen soft. Status post right colectomy. Patient will have her diet advanced once she has significant bowel function.
--- NOTE | 2018-10-24 15:53 | P.PN ---
Subjective Progress Note Date: 10/24/18 This is a 78-year-old female patient of Dr. Herrera. Patient presented today for an elective right colectomy for right colon mass. Per patient and family patient has had issues with right colon mass for the past year and a half. Patient reports this all started due to patient's anemia Original computed tomography scan performed in March 2017. Patient reports at that time a colonoscopy was attempted but was unsuccessful. patient reports that she has had 3 follow-up CT scans. Last computed tomography scan performed on 10/01/2018 showing a right colonic mass near the junction of the cecum and ascending colon with adjacent pathological adenopathy. Patient has known past medical history of hyperlipidemia, hypertension, osteoarthritis, permanent pacemaker placement in 2014 in which she follows with [facility]. At this time patient is resting comfortably in bed post surgery. Patient is nothing by mouth at this time. Home meds currently on hold. A.m. labs have been ordered. Patient denies nausea vomiting or diarrhea. Bowel sounds currently absent at this time. Patient's blood pressure 90 systolically. Patient to receive fluid bolus from surgical services. Patient denies chest pain or shortness of breath. Patient denies any urinary burning or frequency. On 10/21/2018 patient's alert and oriented 3. Patient currently sitting up in chair. At this time patient denies chest pain or shortness breath. Patient denies nausea vomiting or diarrhea. Patient denies any urinary burning or frequency. Patient is having hypoactive bowel sounds. Discussed case with surgical [employer]OC[employer] . Okay to resume home medications at this time. Patient is currently restricted. Per surgical team likely will advance diet later today. On 10/22/2018 patient's alert and oriented 3 now. Patient apparently had some confusion throughout night. Per patient's daughter at bedside patient has not slept in 48 hours. Epidural has been removed this a.m. Patient is still not passing gas. Patient remains nothing by mouth. Patient denies chest pain or shortness of breath. Patient denies nausea vomiting or diarrhea. Patient denies any urinary burning or frequency. On 10/23/2018 patient's alert and oriented 3 sitting up in chair. Patient is continuing to have occasional confusion at nighttime. Patient did get better sleep last night. Patient also does better when daughter is at bedside. Per surgical services patient may advance to clear diet when patient began passing gas which she has not. At this time patient denies chest pain or shortness breath. Patient denies nausea vomiting or diarrhea. Patient has any urinary burning or frequency On 10/24/2018 patient was seen and examined on the medical floor she is alert and oriented 3 she denies any symptoms at this time there is no fever or chills no headache or dizziness no chest pain no shortness of breath no cough no nausea or vomiting no abdominal pain no diarrhea and no urinary symptoms. She has not moved her bowels or passed any gas so far. Objective - Vital Signs Vital signs: Vital Signs Temp 98.3 F 10/24/18 15:00 Pulse 86 10/24/18 15:00 Resp 16 10/24/18 15:00 BP 101/62 10/24/18 15:00 Pulse Ox 93 L 10/24/18 15:00 Intake & Output 10/23/18 10/24/18 10/24/18 18:59 06:59 18:59 Intake Total 700 800 Balance 700 800 Weight 83.915 kg Intake: IV 800 D5-0.45% NaCl with KCl 800 20Meq/l 1,000 ml @ 100 mls/hr IV .Q10H EVAN Rx#: [id number] Intake, IV Titration 700 Amount D5-0.45% NaCl with KCl 700 20Meq/l 1,000 ml @ 100 mls/hr IV .Q10H EVAN Rx#: [id number] Other: Voiding Method Toilet Toilet # Voids 2 - Exam Head normocephalic and atraumatic Neck supple no JVD no goiter Lungs clear to auscultation bilaterally no wheezing or crackles Heart regular rate and rhythm S1-S2, no rub or gallop Abdomen wound VAC to midline abdominal incision. Site is clean dry and intact. Abdomen is soft and nontender. Bowel sounds hypoactive Neuro alert and orientated to 3 - Labs CBC & Chem 7: 10/24/18 07:51 10/24/18 07:51 Labs: Abnormal Lab Results - Last 24 Hours (Table) 10/24/18 10/24/18 Range/Units 07:51 07:51 RBC 3.56 L (3.80-5.40) m/uL Hgb 10.7 L (11.4-16.0) gm/dL Carbon Dioxide 31 H (22-30) mmol/L BUN 4 L (7-17) mg/dL Glucose 105 H (74-99) mg/dL Total Protein 5.5 L (6.3-8.2) g/dL Albumin 2.9 L (3.5-5.0) g/dL Assessment and Plan Plan: 1. Status post right colectomy with Dr. Weinstein for right colon mass. Patient is currently nothing by mouth at this time. Patient is currently postop day 4. Patient is currently on ice chips per surgical team. I will likely be completed today. Okay to resume home meds per surgical services. Patient remains nothing by mouth at this time. Per oncology services awaiting final pathology for further recommendation for 2. History of hyperlipidemia 3. History of essential hypertension. At this time patient is having blood pressures with systolics in the 90s. 500 mL bolus ordered per surgical services. Blood pressure improved. Norvasc resumed with parameters 4. History of osteoarthritis 5. History of permanent pacemaker placement in 2014. Patient reports she follows with [facility] 6. expected Acute blood loss anemia secondary to surgery. Hemoglobin 9.9. Continue to monitor 7. Increased confusion throughout night. Epidural has been DC'd this AM. We'll continue to monitor closely. Patient has Ativan when necessary Thank you for this consultation we will continue to follow patient closely throughout stay DVT prophylaxis heparin. GI prophylaxis Protonix
[2018-10-24] MEDS: ATORVASTATIN 20 MG TAB PO SCH (22:01)
[2018-10-25] MEDS: HEPARIN SODIUM,PORCINE 5,000 UNIT/ML 1 ML VIAL SQ SCH ×2 (00:15→08:20)
[2018-10-25 00:16] VITALS: PULSE 80
[2018-10-25] MEDS: D5-0.45% NACL WITH KCL 20MEQ/L 1,000 ML IV SCH ×2 (00:16→10:36)
[2018-10-25] MEDS: LEVOTHYROXINE 50 MCG TAB PO SCH (06:14)
[2018-10-25 07:35] VITALS: BP 114/72; RESP 15; TEMP 98.6
[2018-10-25 07:46] LABS: ALT 25 U/L (9-52); AST 16 U/L (14-36); Albumin 2.6 g/dL (3.5-5.0); Alkaline Phosphatase 102 U/L (38-126); Anion Gap 4 mmol/L; Blood Urea Nitrogen 4 mg/dL (7-17); Calcium 8.6 mg/dL (8.4-10.2); Carbon Dioxide 32 mmol/L (22-30); Chloride 102 mmol/L (98-107); Glucose 109 mg/dL (74-99); Potassium 3.3 mmol/L (3.5-5.1); Sodium 138 mmol/L (137-145); Total Bilirubin 0.7 mg/dL (0.2-1.3); Total Protein 5.1 g/dL (6.3-8.2)
[2018-10-25] MEDS ORDERED: Potassium Replacement Protocol 1 EACH MISC MISCELLANE PRN (08:02)
[2018-10-25] MEDS: MELOXICAM 7.5 MG TAB PO SCH (08:20)
[2018-10-25] MEDS: POTASSIUM CHLORIDE ER 20 MEQ TAB.ER PO SCH ×2 (08:20→10:37)
[2018-10-25] MEDS: ALVIMOPAN 12 MG CAPSULE PO SCH (08:20)
[2018-10-25] MEDS: ALLOPURINOL 100 MG TAB PO SCH (08:20)
[2018-10-25] MEDS: amLODIPine 5 MG TAB PO SCH (08:21)
[2018-10-25] MEDS: FUROSEMIDE 40 MG TAB PO SCH (08:21)
[2018-10-25] MEDS: FAMOTIDINE 20 MG TAB PO SCH (08:21)
[2018-10-25 09:28] LABS: Basophils % (A) 1 %; Eosinophils # (A) 0.5 k/uL (0-0.7); Eosinophils % (A) 11 %; HCT 33.1 % (34.0-46.0); HGB 10.2 gm/dL (11.4-16.0); Hypochromasia Slight; Lymphocytes # (A) 0.9 k/uL (1.0-4.8); Lymphocytes % (A) 21 %; MCH 29.9 pg (25.0-35.0); MCHC 30.9 g/dL (31.0-37.0); MCV 96.8 fL (80.0-100.0); Mean Platelet Volume 7.4; Monocytes # (A) 0.4 k/uL (0-1.0); Monocytes % (A) 8 %; Neutrophils # (A) 2.5 k/uL (1.3-7.7); Neutrophils % (A) 57 %; Platelet Count 219 k/uL (150-450); RBC 3.42 m/uL (3.80-5.40); RDW 12.8 % (11.5-15.5); WBC 4.3 k/uL (3.8-10.6)
--- NOTE | 2018-10-25 13:18 | P.DS ---
Providers Date of admission: 10/20/18 09:14 Expected date of discharge: 10/25/18 Attending physician: Dioni Weinstein Consults: 10/20/18 12:45 Consult Physician Routine Consulting Provider: Gill Kumar Consult Reason/Comments: Medical management Do you want consulting provider notified?: Yes 10/21/18 12:48 Consult Physician Routine Consulting Provider: David Ochoa Consult Reason/Comments: previous ct scan renal mass Do you want consulting provider notified?: Yes Primary care physician: [facility] Course: This a 78-year-old female who underwent right colectomy. Patient did well postoperatively. Please see hospital chart for details. Procedures: Right colectomy Patient Condition at Discharge: Good Plan - Discharge Summary Discharge Rx Participant: No New Discharge Prescriptions: New Docusate [Colace] 100 mg PO BID #30 capsule HYDROcodone/APAP 7.5-325MG [Riley 7.5-325] 1 tab PO Q4H PRN 3 Days #18 tab PRN Reason: Pain No Action Ergocalciferol [Vitamin D2] 50,000 unit PO TU Furosemide [Lasix] 40 mg PO DAILY Levothyroxine Sodium [Synthroid] 50 mcg PO DAILY Atorvastatin [Lipitor] 20 mg PO HS amLODIPine [Norvasc] 5 mg PO DAILY Potassium Chloride [Klor-Con 20] 20 meq PO DAILY Celecoxib [CeleBREX] 200 mg PO DAILY Allopurinol [Zyloprim] 100 mg PO DAILY Ferrous Sulfate [Feosol] 325 mg PO DAILY Albuterol Inhaler [Ventolin Hfa Inhaler] 1 - 2 puff INHALATION RT-DAILY PRN PRN Reason: Shortness Of Breath Discharge Medication List Allopurinol [Zyloprim] 100 mg PO DAILY 03/19/17 [History] Atorvastatin [Lipitor] 20 mg PO HS 03/19/17 [History] Celecoxib [CeleBREX] 200 mg PO DAILY 03/19/17 [History] Ergocalciferol [Vitamin D2] 50,000 unit PO TU 03/19/17 [History] Furosemide [Lasix] 40 mg PO DAILY 03/19/17 [History] Levothyroxine Sodium [Synthroid] 50 mcg PO DAILY 03/19/17 [History] Potassium Chloride [Klor-Con 20] 20 meq PO DAILY 08/09/17 [History] amLODIPine [Norvasc] 5 mg PO DAILY 03/19/17 [History] Ferrous Sulfate [Feosol] 325 mg PO DAILY 10/15/18 [History] Albuterol Inhaler [Ventolin Hfa Inhaler] 1 - 2 puff INHALATION RT-DAILY PRN 10/19/18 [History] Docusate [Colace] 100 mg PO BID #30 capsule 10/23/18 [Rx] HYDROcodone/APAP 7.5-325MG [Riley 7.5-325] 1 tab PO Q4H PRN 3 Days #18 tab 10/23/18 [Rx] Follow up Appointment(s)/Referral(s): [facility], [NON-STAFF] - As Needed Dioni Weinstein MD [STAFF PHYSICIAN] - 10/29/18 1:10 pm Activity/Diet/Wound Care/Special Instructions: No driving while taking Riley No lifting over 10 pounds You may shower. No soaking or tub baths Very light activity until you are reevaluated at your follow up appointment with your surgeon
--- NOTE | 2018-10-25 15:14 | P.PN ---
Subjective Progress Note Date: 10/25/18 This is a 78-year-old female patient of Dr. Herrera. Patient presented today for an elective right colectomy for right colon mass. Per patient and family patient has had issues with right colon mass for the past year and a half. Patient reports this all started due to patient's anemia Original computed tomography scan performed in March 2017. Patient reports at that time a colonoscopy was attempted but was unsuccessful. patient reports that she has had 3 follow-up CT scans. Last computed tomography scan performed on 10/01/2018 showing a right colonic mass near the junction of the cecum and ascending colon with adjacent pathological adenopathy. Patient has known past medical history of hyperlipidemia, hypertension, osteoarthritis, permanent pacemaker placement in 2014 in which she follows with [facility]. At this time patient is resting comfortably in bed post surgery. Patient is nothing by mouth at this time. Home meds currently on hold. A.m. labs have been ordered. Patient denies nausea vomiting or diarrhea. Bowel sounds currently absent at this time. Patient's blood pressure 90 systolically. Patient to receive fluid bolus from surgical services. Patient denies chest pain or shortness of breath. Patient denies any urinary burning or frequency. On 10/21/2018 patient's alert and oriented 3. Patient currently sitting up in chair. At this time patient denies chest pain or shortness breath. Patient denies nausea vomiting or diarrhea. Patient denies any urinary burning or frequency. Patient is having hypoactive bowel sounds. Discussed case with surgical [employer] . Okay to resume home medications at this time. Patient is currently restricted. Per surgical team likely will advance diet later today. On 10/22/2018 patient's alert and oriented 3 now. Patient apparently had some confusion throughout night. Per patient's daughter at bedside patient has not slept in 48 hours. Epidural has been removed this a.m. Patient is still not passing gas. Patient remains nothing by mouth. Patient denies chest pain or shortness of breath. Patient denies nausea vomiting or diarrhea. Patient denies any urinary burning or frequency. On 10/23/2018 patient's alert and oriented 3 sitting up in chair. Patient is continuing to have occasional confusion at nighttime. Patient did get better sleep last night. Patient also does better when daughter is at bedside. Per surgical services patient may advance to clear diet when patient began passing gas which she has not. At this time patient denies chest pain or shortness breath. Patient denies nausea vomiting or diarrhea. Patient has any urinary burning or frequency On 10/24/2018 patient was seen and examined on the medical floor she is alert and oriented 3 she denies any symptoms at this time there is no fever or chills no headache or dizziness no chest pain no shortness of breath no cough no nausea or vomiting no abdominal pain no diarrhea and no urinary symptoms. She has not moved her bowels or passed any gas so far. On 10/25/2018 patient is doing better she started moving gas and have a bowel movement last night there is no fever or chills no headache or dizziness no chest pain no shortness of breath no cough no nausea or vomiting no abdominal pain no diarrhea and no urinary symptoms Objective - Vital Signs Vital signs: Vital Signs Temp 98.6 F 10/25/18 07:00 Pulse 80 10/25/18 07:00 Resp 15 10/25/18 07:00 BP 114/72 10/25/18 07:00 Pulse Ox 97 10/25/18 07:00 Intake & Output 10/24/18 10/25/18 10/25/18 18:59 06:59 18:59 Intake Total 800 480 Balance 800 480 Weight 83.915 kg Intake: IV 800 D5-0.45% NaCl with KCl 800 20Meq/l 1,000 ml @ 100 mls/hr IV .Q10H EVAN Rx#: [id number] Oral 480 Other: # Voids 2 2 # Bowel Movements 2 3 - Exam Head normocephalic and atraumatic Neck supple no JVD no goiter Lungs clear to auscultation bilaterally no wheezing or crackles Heart regular rate and rhythm S1-S2, no rub or gallop Abdomen wound VAC to midline abdominal incision. Site is clean dry and intact. Abdomen is soft and nontender. Bowel sounds hypoactive Neuro alert and orientated to 3 - Labs CBC & Chem 7: 10/25/18 06:56 10/25/18 13:15 Labs: Abnormal Lab Results - Last 24 Hours (Table) 10/25/18 10/25/18 10/25/18 Range/Units 06:56 06:56 13:15 RBC 3.42 L (3.80-5.40) m/uL Hgb 10.2 L (11.4-16.0) gm/dL Hct 33.1 L (34.0-46.0) % MCHC 30.9 L (31.0-37.0) g/dL Lymphocytes # 0.9 L (1.0-4.8) k/uL Potassium 3.3 L 3.4 L (3.5-5.1) mmol/L Carbon Dioxide 32 H (22-30) mmol/L BUN 4 L (7-17) mg/dL Glucose 109 H (74-99) mg/dL Total Protein 5.1 L (6.3-8.2) g/dL Albumin 2.6 L (3.5-5.0) g/dL Assessment and Plan Plan: 1. Status post right colectomy with Dr. Weinstein for right colon mass. Patient is currently nothing by mouth at this time. Patient is currently postop day 4. Patient is currently on ice chips per surgical team. I will likely be completed today. Okay to resume home meds per surgical services. 2. History of hyperlipidemia 3. History of essential hypertension. At this time patient is having blood pressures with systolics in the 90s. 500 mL bolus ordered per surgical services. Blood pressure improved. Norvasc resumed with parameters 4. History of osteoarthritis 5. History of permanent pacemaker placement in 2014. Patient reports she follows with [facility] 6. expected Acute blood loss anemia secondary to surgery. Hemoglobin 9.9. Continue to monitor 7. Increased confusion throughout night. Epidural has been DC'd this AM. We'll continue to monitor closely. Patient has Ativan when necessary Thank you for this consultation we will continue to follow patient closely throughout stay DVT prophylaxis heparin. GI prophylaxis Protonix Patient is scheduled to be discharged home today by surgery She will follow-up with her primary care physician Dr. Tamiko Herrera within 1 week
[2018-10-27] MEDS ORDERED: ERGOCALCIFEROL 50,000 UNIT CAP PO SCH (09:00)
== END 2018-10-25 15:10 | disposition home health service (06) | DRG 330 ==
LOC: 2ORMAIN 09:14 → 4SSUR 13:25
PROVIDERS: ADMIT Surgery; ATTEND Surgery
PROC: 0DTF0ZZ Resection of Right Large Intestine, Open Approach (ICD-10-PCS; principal; 2018-10-20 10:45)
DX: C18.2 Malignant neoplasm of ascending colon (principal); C77.2 Secondary and unspecified malignant neoplasm of intra-abdominal lymph nodes; D62 Acute posthemorrhagic anemia; I10 Essential (primary) hypertension; E78.5 Hyperlipidemia, unspecified; M19.90 Unspecified osteoarthritis, unspecified site; K29.50 Unspecified chronic gastritis without bleeding; K20.9 Esophagitis, unspecified; D12.5 Benign neoplasm of sigmoid colon; D50.9 Iron deficiency anemia, unspecified; N28.89 Other specified disorders of kidney and ureter; R41.0 Disorientation, unspecified; Z71.3 Dietary counseling and surveillance; Z79.890 Hormone replacement therapy; Z79.899 Other long term (current) drug therapy; Z96.649 Presence of unspecified artificial hip joint; Z90.710 Acquired absence of both cervix and uterus; Z95.0 Presence of cardiac pacemaker; Z87.891 Personal history of nicotine dependence; Z80.9 Family history of malignant neoplasm, unspecified
CPT/HCPCS: 80048; 80053; 84132; 85025; 85610; 86850; 86900; 86901; 88309

== ENCOUNTER → 2018-11-07 | Outpatient (CLI) | payer MEDICARE ==
--- NOTE | 2018-11-09 06:12 | PE ---
EXAMINATION TYPE: PET CT fusion skull to thigh DATE OF EXAM: 11/07/2018 COMPARISON: CT abdomen and pelvis October 01, 2018 and older CTs. HISTORY: History of colon cancer treated surgically October 20, 2018. TECHNIQUE: Following the intravenous administration of 11.70 mCi of F-18 FDG, whole body images are performed from the skull base to the midthigh. Images are reviewed on the computer in the coronal, a xial, and sagittal planes. Reconstructed rotating images are created on independent workstation and reviewed on the computer. A noncontrast CT is performed in conjunction with the PET scan. SCAN: Initial Scan FINDINGS: SKULL BASE AND NECK: No suspicious hypermetabolic uptake is present. CHEST, MEDIASTINUM, AND HILAR REGION: No suspicious hypermetabolic uptake is seen. ABDOMEN AND PELVIS: No suspicious hypermetabolic uptake is seen. Mild vertical uptake along the midli ne anterior abdominal wall correlates with history of recent surgery, some subcutaneous gas is also n oted.. OSSEOUS STRUCTURES: No suspicious hypermetabolic uptake. OTHER CT: Mild to moderate calcified plaque bilateral carotid bulbs right greater than left is presen t. Cardiomegaly with dual lead pacemaker. There is moderate to severe coronary artery calcification whic h is noted marker for underlying coronary artery disease. Small hiatal hernia is present. There are surgical sutures from right-sided partial colectomy near ax ial image 172. Diverticula in sigmoid colon suspected. Metallic hardware from bilateral hip arthroplasty causes streak artifact limiting evaluation of pelvi c structures. Uterus suspected surgically absent or markedly atrophic. Splenic calcifications are pre sent. Demineralization is present. There is multilevel spurring in the spine. Facet arthropathy lower lumba r levels is seen. There is multilevel disc space narrowing and vacuum disc phenomenon in the lumbar s pine. Well-defined lucent areas in sacrum could reflect old insufficiency fracture, no hypermetabolic uptake is seen. No Tarlov cysts clearly identified. IMPRESSION: No suspicious hypermetabolic uptake identified to suggest metastatic or residual malignan cy.
== END | disposition home or self-care (01) ==
LOC: RADPETMAIN 07:52
PROVIDERS: ATTEND Family Medicine
DX: C18.2 Malignant neoplasm of ascending colon (principal)
CPT/HCPCS: 78815; A9552

== ENCOUNTER → 2018-12-09 | Day surgery (SDC) | payer MEDICARE ==
[2018-12-07 08:59] VITALS: BMI 30.9
[~2018-12-09] MED LIST changes: +BUPIVACAINE (PF) 0.5% 30 ML VIAL SQ ONE; +HEPARIN SODIUM,PORCINE 100 UNIT/ML 5 ML VIAL IV ONE; +HEPARIN SODIUM,PORCINE 5,000 UNIT/ML 1 ML VIAL SQ ONE; +IOHEXOL 180 MG/ML 1 ML ML MISCELLANE ONE; +LACTATED RINGERS 1,000 ML IV SCH; +LIDOCAINE 1% 20 ML VIAL (10MG/ML) FOR IV START INTRADERMA PRN; -MIDAZOLAM (PF) 2 MG/2 ML VIAL IV PRN; +MIDAZOLAM 2 MG/2 ML VIAL IV PRN; +MIDAZOLAM 2 MG/2 ML VIAL ONE; +ONDANSETRON 4 MG/2 ML VIAL IVP ONE; -ONDANSETRON 4 MG/2 ML VIAL IVP PRN; +PROPOFOL 10 MG/ML 20 ML VIAL IV ONE; +Pre Op ABX Message 1 EACH MISC MISCELLANE ONE; +SCOPOLAMINE 1.5MG/72HR PATCH TRANSDERM ONE; +SODIUM CHLORIDE 0.9% 50 ML with ceFAZolin 2,000 MG IV ONE; -ceFAZolin IN SWFI 2 GM/20 ML SYRINGE IVP ONE; +fentaNYL (PF) 50 MCG/ML 2 ML AMP ONE; -metroNIDAZOLE-NS PMX 500 MG in SALINE 1 100ML.BAG IVPB ONE
[2018-12-09 12:06] VITALS: TEMP 97.5
--- NOTE | 2018-12-09 14:01 | P.GSHP ---
History of Present Illness H&P Date: 12/09/18 Chief Complaint: History of right colon cancer This is a 78-year-old female who presents today for Port-A-Cath insertion. Patient is receiving diagnosed with right colon cancer. Past Medical History Past Medical History: COPD, Hyperlipidemia, Hypertension, Osteoarthritis (OA), Thyroid Disorder Additional Past Medical History / Comment(s): rectal mass removed, colectomy 10/20/18, hiatal hernia, hx anemia, History of Any Multi-Drug Resistant Organisms: None Reported Past Surgical History: Bowel Resection, Hysterectomy, Joint Replacement, Pacemaker Additional Past Surgical History / Comment(s): danielle hip replacement, colonoscopy, colectomy 10/20/18 Past Anesthesia/Blood Transfusion Reactions: No Reported Reaction Type of Cardiac Device: Permanent Pacemaker Device Placement Date:: 2014 Smoking Status: Former smoker - Past Family History Mother Family Medical History: Cancer Medications and Allergies Home Medications Medication Instructions Recorded Confirmed Type Allopurinol [Zyloprim] 100 mg PO Q48H 03/19/17 12/09/18 History Atorvastatin [Lipitor] 20 mg PO HS 03/19/17 12/09/18 History Celecoxib [CeleBREX] 200 mg PO DAILY 03/19/17 12/09/18 History Ergocalciferol [Vitamin D2] 50,000 unit PO TU 03/19/17 12/09/18 History Furosemide [Lasix] 40 mg PO DAILY 03/19/17 12/09/18 History Levothyroxine Sodium [Synthroid] 50 mcg PO DAILY 03/19/17 12/09/18 History Potassium Chloride [Klor-Con 20] 20 meq PO BID 03/19/17 12/09/18 History amLODIPine [Norvasc] 5 mg PO DAILY 03/19/17 12/09/18 History Ferrous Sulfate [Feosol] 325 mg PO DAILY 10/15/18 12/09/18 History Albuterol Inhaler [Ventolin Hfa 1 - 2 puff INHALATION RT-DAILY PRN 10/19/18 12/09/18 History Inhaler] Allergies Allergy/AdvReac Type Severity Reaction Status Date / Time No Known Allergies Allergy Verified 12/09/18 12:03 Surgical - Exam Vital Signs Temp Pulse Resp BP Pulse Ox 97.5 F L 73 16 147/67 95 12/09/18 12:04 12/09/18 12:04 12/09/18 12:04 12/09/18 12:04 12/09/18 12:04 - General well developed, well nourished, no distress - Eyes PERRL - ENT normal pinna - Neck no masses - Respiratory normal expansion - Cardiovascular Rhythm: regular - Abdomen Abdomen: soft, non tender Assessment and Plan Assessment: History of right colon cancer. We'll perform Port-A-Cath insertion.
--- NOTE | 2018-12-09 15:29 | P.OP ---
Date of Procedure: 12/09/18 Preoperative Diagnosis: Right colon cancer Postoperative Diagnosis: Right colon cancer Procedure(s) Performed: Insertion of right subclavian Port-A-Cath Anesthesia: MAC Surgeon: Dioni Weinstein Pathology: none sent Condition: stable Disposition: PACU Description of Procedure: PROCEDURE: The patient was placed on the operating table in the supine position. She received MAC anesthetic. The [right] chest was prepped and draped in the usual sterile fashion. The skin underneath the right clavicle was anesthetized with 1% Xylocaine and using Seldinger technique, the right subclavian vein was cannulized. The wire was placed through the needle and positioned under fluoroscopy. Next, the needle was removed and the port site was anesthetized with 1% Xylocaine. Skin was incised with #15 blade and port pocket was made using blunt and sharp dissection. Following this the catheter was attached to the sport and the port was flushed. The port was positioned into the pocket site and was secured with 3-0 Vicryl suture. The catheter was then brought out through the wire site and then the dilator sheath was placed over the wire and the dilator and the wire were removed. The catheter was placed through the sheath and the sheath was removed. The port was flushed with hep-lock solution. Skin was closed with interrupted 3-0 Vicryl sutures. Steri-Strips were applied. The patient tolerated the procedure well. The patient was sent to recovery room for chest x-ray after the procedure.
[2018-12-09 15:34] VITALS: RESP 18
--- NOTE | 2018-12-09 15:48 | XR ---
EXAMINATION TYPE: XR chest 1V DATE OF EXAM: 12/09/2018 COMPARISON: PET CT October 28, 2018. HISTORY: Port-A-Cath insertion for colon cancer. TECHNIQUE: Single frontal view of the chest is obtained. FINDINGS: There is chronic parenchymal change without suspicious focal air space opacity, pleural ef fusion, or pneumothorax seen. The cardiac silhouette size remains enlarged with dual lead pacemaker. There is new right subclavian Mediport catheter terminating in SVC. The osseous structures are zach neralized. IMPRESSION: New right subclavian Mediport catheter terminating in SVC. No pneumothorax is evident af ter catheter placement.
--- NOTE | 2018-12-09 15:49 | FL ---
EXAMINATION TYPE: FL guided central line placemt DATE OF EXAM: 12/09/2018 CLINICAL HISTORY: Colon cancer. TECHNIQUE: Fluoroscopy. COMPARISON: None. FINDINGS: Fluoroscopic guidance was provided during Mediport catheter and insertion procedure perfor [facility] by Dr. Weinstein. A total of 19 seconds of fluoroscopic time was utilized during the procedure an d single spot intraoperative fluoroscopic image is acquired. Single image acquired shows tip of sydnee ter projecting over SVC. IMPRESSION: As Above.
[2018-12-09 17:25] VITALS: BP 134/73; PULSE 63
== END | disposition home or self-care (01) ==
LOC: OR 11:14
PROVIDERS: ATTEND Surgery
DX: C18.2 Malignant neoplasm of ascending colon (principal); E07.9 Disorder of thyroid, unspecified; E78.5 Hyperlipidemia, unspecified; I10 Essential (primary) hypertension; J44.9 Chronic obstructive pulmonary disease, unspecified; K44.9 Diaphragmatic hernia without obstruction or gangrene; M19.90 Unspecified osteoarthritis, unspecified site; Z87.891 Personal history of nicotine dependence; Z95.0 Presence of cardiac pacemaker; Z96.643 Presence of artificial hip joint, bilateral; Z79.890 Hormone replacement therapy; Z79.899 Other long term (current) drug therapy
CPT/HCPCS: 77001; 71045; 36571; C1788; J2250; J1644; J1642; J1100; Q9965; J2405; J0690; J3010; J2704

== ENCOUNTER 2019-05-24 06:40 | Day surgery (SDC) | payer MEDICARE ==
[2019-05-19 15:40] VITALS: BMI 26.9
[~2019-05-24 06:40] MED LIST changes: -BUPIVACAINE (PF) 0.5% 30 ML VIAL SQ ONE; -HEPARIN SODIUM,PORCINE 100 UNIT/ML 5 ML VIAL IV ONE; -HYDROmorphone 0.5 MG/0.5 ML SYRINGE IVP PRN; -IOHEXOL 180 MG/ML 1 ML ML MISCELLANE ONE; +METOCLOPRAMIDE 5 MG/ML 2 ML VIAL IVP PRN; -MIDAZOLAM 2 MG/2 ML VIAL IV PRN; -MIDAZOLAM 2 MG/2 ML VIAL ONE; +MORPHINE SULFATE 2 MG/ML SYRINGE IV PRN; -PROPOFOL 10 MG/ML 20 ML VIAL IV ONE; -Pre Op ABX Message 1 EACH MISC MISCELLANE ONE; -SCOPOLAMINE 1.5MG/72HR PATCH TRANSDERM ONE; -SODIUM CHLORIDE 0.9% 50 ML with ceFAZolin 2,000 MG IV ONE; -fentaNYL (PF) 50 MCG/ML 2 ML AMP ONE
[2019-05-24 07:34] VITALS: RESP 16
[2019-05-24] MEDS ORDERED: SUCCINYLCHOLINE CHLORIDE 100 MG/5 ML SYR IV ONE (07:40)
[2019-05-24] MEDS ORDERED: LIDOCAINE 1% INJ 10MG/ML (20 ML MDV) ONE (07:40)
[2019-05-24] MEDS ORDERED: GLYCOPYRROLATE 0.2 MG/ML 2 ML VIAL ONE (07:40)
[2019-05-24] MEDS ORDERED: MIDAZOLAM 2 MG/2 ML VIAL ONE (07:40)
[2019-05-24] MEDS ORDERED: NEOSTIGMINE 1 MG/ML 10 ML VIAL ONE (07:40)
[2019-05-24] MEDS ORDERED: PROPOFOL 10 MG/ML 20 ML VIAL IV ONE (07:40)
[2019-05-24] MEDS ORDERED: PHENYLEPHRINE-0.9% NACL SYG 1 MG/10 ML SYRINGE ONE (07:40)
[2019-05-24] MEDS ORDERED: fentaNYL (PF) 50 MCG/ML 2 ML AMP ONE (07:40)
[2019-05-24] MEDS ORDERED: ROCURONIUM BROMIDE 10 MG/ML 10 ML VIAL IV ONE (07:40)
--- NOTE | 2019-05-24 07:50 | P.GSHP ---
History of Present Illness H&P Date: 05/24/19 Chief Complaint: Cholecystitis This a 78-year-old female who presents today for laparoscopic cholecystectomy. She's had complete the right upper quadrant pain. Her recent shows was evidence cholecystitis and cholelithiasis. Past Medical History Past Medical History: Cancer, COPD, Hyperlipidemia, Hypertension, Osteoarthritis (OA), Thyroid Disorder Additional Past Medical History / Comment(s): hx. colon cancer October 2018-had surgery & some chemo, hiatal hernia, gallstones History of Any Multi-Drug Resistant Organisms: None Reported Past Surgical History: Bowel Resection, Hysterectomy, Joint Replacement, Pacemaker Additional Past Surgical History / Comment(s): danielle hip replacement, colonoscopy, colectomy 10/20/18 Past Anesthesia/Blood Transfusion Reactions: No Reported Reaction Type of Cardiac Device: Permanent Pacemaker Device Placement Date:: 2014 Smoking Status: Former smoker - Past Family History Mother Family Medical History: Cancer Medications and Allergies Home Medications Medication Instructions Recorded Confirmed Type Allopurinol [Zyloprim] 100 mg PO Q48H 03/19/17 05/24/19 History Atorvastatin [Lipitor] 20 mg PO HS 03/19/17 05/24/19 History Celecoxib [CeleBREX] 200 mg PO DAILY 03/19/17 05/24/19 History Ergocalciferol [Vitamin D2] 50,000 unit PO TU 03/19/17 05/24/19 History Levothyroxine Sodium [Synthroid] 50 mcg PO DAILY 03/19/17 05/24/19 History amLODIPine [Norvasc] 5 mg PO DAILY 03/19/17 05/24/19 History Allergies Allergy/AdvReac Type Severity Reaction Status Date / Time No Known Allergies Allergy Verified 05/24/19 07:04 Surgical - Exam Vital Signs Temp Pulse Resp BP Pulse Ox 98 F 80 16 145/70 97 05/24/19 07:17 05/24/19 07:17 05/24/19 07:17 05/24/19 07:17 05/24/19 07:17 - General well developed, well nourished, no distress - Eyes PERRL - ENT normal pinna - Neck no masses - Respiratory normal expansion - Cardiovascular Rhythm: regular - Abdomen Abdomen: soft, non tender Assessment and Plan Assessment: Chronic cholecystitis we'll perform laparoscopic cholecystectomy.
[2019-05-24] MEDS ORDERED: BUPIVACAINE (PF) 0.25% 30 ML VIAL SQ ONE (08:10)
[2019-05-24] MEDS ORDERED: LACTATED RINGERS 1,000 ML IV ONE (08:46)
[2019-05-24 09:08] VITALS: TEMP 97.1
--- NOTE | 2019-05-24 09:36 | P.OP ---
Date of Procedure: 05/24/19 Preoperative Diagnosis: Cholecystitis Postoperative Diagnosis: Cholecystitis Procedure(s) Performed: Laparoscopic cholecystectomy Anesthesia: PRACHI Surgeon: Dioni Weinstein Pathology: other (Gallbladder) Condition: stable Disposition: PACU Description of Procedure: The patient was placed on the operating table. The patient received a general endotracheal tube anesthesia. The patients abdomen was prepped and draped in the usual sterile fashion. Through an infraumbilical stab incision, the fascia of the anterior abdominal wall was grasped with a pair of Kochers and then the Veress needle was placed in the peritoneal cavity. Position of the Veress needle was confirmed with positive drop test. The abdomen was then insufflated. After adequate insufflation, the 10 mm trocar was placed in the peritoneal cavity. Following this the laparoscope was placed in the peritoneal cavity. The patient was placed in the head-up, right side up position and then a 5 mm trocar was placed in the right lateral and right subcostal position under direct visualization. A 8 mm trocar was placed in the epigastric position. He The gallbladder was severely contracted and scarred. The gallbladder wall was very friable. The gallbladder was grasped in the fundus and infundibulum. Traction on the gallbladder was placed in the lateral and the cephalad positions. The triangle of Calot was visualized.. The cystic duct was bluntly dissected until the union of the cystic duct and common bile duct was seen. A critical view of safety was achieved. The cystic duct was ligated with a 2-0 Ethibond suture in the timeout device. The cystic duct was then divided and sealed with the Harmonic scissors. . The cystic artery divided and sealed with the Harmonic scissors. The gallbladder was then removed from the liver bed using Harmonic scissors. The gallbladder was then extracted through the epigastric port site. Operative field was checked for any bleeding spots and Harmonic scissors was used to coagulate the liver bed. The abdomen was irrigated. The trocars were remov ed. The skin was closed using interrupted 3-0 Vicryl suture. Dermabond dressing were applied. The patient tolerated the procedure well.
[2019-05-24 12:02] VITALS: BP 125/72; PULSE 73
== END 2019-05-24 12:12 | disposition home or self-care (01) ==
LOC: OR 06:40
PROVIDERS: ATTEND Surgery
DX: K81.1 Chronic cholecystitis (principal); J44.9 Chronic obstructive pulmonary disease, unspecified; E78.5 Hyperlipidemia, unspecified; I10 Essential (primary) hypertension; E07.9 Disorder of thyroid, unspecified; I49.5 Sick sinus syndrome; M10.9 Gout, unspecified; M19.90 Unspecified osteoarthritis, unspecified site; Z95.0 Presence of cardiac pacemaker; K44.9 Diaphragmatic hernia without obstruction or gangrene; Z87.891 Personal history of nicotine dependence; Z90.49 Acquired absence of other specified parts of digestive tract; Z85.038 Personal history of other malignant neoplasm of large intestine; Z92.21 Personal history of antineoplastic chemotherapy; Z97.2 Presence of dental prosthetic device (complete) (partial); Z90.710 Acquired absence of both cervix and uterus; Z96.643 Presence of artificial hip joint, bilateral; Z79.890 Hormone replacement therapy; Z79.899 Other long term (current) drug therapy
CPT/HCPCS: 47562; 88304; J2250; J1644; J1100; J2710; J0690; J2405; J2001; J3010; J2370; J0330; J2704

== ENCOUNTER 2022-07-09 08:18 | Day surgery (SDC) | payer MEDICARE ==
[~2022-07-09 08:18] MED LIST changes: +ACETAMINOPHEN TAB 500 MG TAB PO PRN; -DEXAMETHASONE SOD PHOSPHATE 10 MG/ML 1 ML VIAL IV ONE; -HEPARIN SODIUM,PORCINE 5,000 UNIT/ML 1 ML VIAL SQ ONE; +HEPARIN SODIUM,PORCINE/PF 5,000 UNIT/0.5 ML SYRINGE SQ PRN; -LACTATED RINGERS 1,000 ML IV SCH; -LIDOCAINE 1% 20 ML VIAL (10MG/ML) FOR IV START INTRADERMA PRN; -METOCLOPRAMIDE 5 MG/ML 2 ML VIAL IVP PRN; -MORPHINE SULFATE 2 MG/ML SYRINGE IV PRN; -ONDANSETRON 4 MG/2 ML VIAL IVP ONE
[2022-07-09] MEDS ORDERED: DEXAMETHASONE SOD PHOSPHATE 4 MG/ML 1 ML VIAL IV ONE (08:38)
[2022-07-09] MEDS ORDERED: ONDANSETRON 4 MG/2 ML VIAL IVP ONE (08:38)
[2022-07-09] MEDS ORDERED: fentaNYL (PF) 50 MCG/ML 2 ML AMP IV PRN (08:38)
[2022-07-09 09:07] VITALS: RESP 16; TEMP 98
[2022-07-09] MEDS: LACTATED RINGERS 1,000 ML IV SCH ×2 (09:07→09:36)
[2022-07-09 09:08] LABS: Glucose,Whole Blood 90 mg/dL (70-110)
--- NOTE | 2022-07-09 09:22 | P.GSHP ---
History of Present Illness H&P Date: 07/09/22 Chief Complaint: History of colon cancer This 81-year-old female with previous history of colon cancer. Patient presents today for removal of Port-A-Cath. Past Medical History Past Medical History: Cancer, COPD, Diabetes Mellitus, Hyperlipidemia, Hypertension, Osteoarthritis (OA), Thyroid Disorder Additional Past Medical History / Comment(s): hx. colon cancer October 2018-had surgery & some chemo, hiatal hernia, gallstones History of Any Multi-Drug Resistant Organisms: None Reported Past Surgical History: Bowel Resection, Hysterectomy, Joint Replacement, Pacemaker Additional Past Surgical History / Comment(s): danielle hip replacement, colonoscopy, colectomy 10/20/18 Past Anesthesia/Blood Transfusion Reactions: No Reported Reaction Type of Cardiac Device: Permanent Pacemaker Device Placement Date:: 2014 Smoking Status: Former smoker - Past Family History Mother Family Medical History: Cancer Medications and Allergies Home Medications Medication Instructions Recorded Confirmed Type Atorvastatin [Lipitor] 20 mg PO HS 03/19/17 07/09/22 History Celecoxib [CeleBREX] 200 mg PO BID 03/19/17 07/09/22 History Ergocalciferol [Vitamin D2] 50,000 unit PO TU 03/19/17 07/09/22 History Levothyroxine Sodium [Synthroid] 50 mcg PO DAILY 03/19/17 07/09/22 History allopurinoL [Zyloprim] 100 mg PO Q48H 03/19/17 07/09/22 History amLODIPine [Norvasc] 5 mg PO DAILY 03/19/17 07/09/22 History Docusate [Colace] 100 mg PO BID #20 capsule 05/24/19 07/09/22 Rx metFORMIN HCL 500 mg PO DAILY 07/03/22 07/09/22 History Allergies Allergy/AdvReac Type Severity Reaction Status Date / Time No Known Allergies Allergy Verified 07/09/22 08:39 Surgical - Exam Vital Signs Temp Pulse Resp BP Pulse Ox 98.0 F 83 16 168/75 96 07/09/22 08:56 07/09/22 08:56 07/09/22 08:56 07/09/22 08:56 07/09/22 08:56 - General well developed, well nourished, no distress - Eyes PERRL - ENT normal pinna - Neck no masses - Respiratory normal expansion - Cardiovascular Rhythm: regular - Abdomen Abdomen: soft, non tender Assessment and Plan Assessment: History of colon cancer we'll perform of right subclavian Port-A-Cath.
[2022-07-09] MEDS ORDERED: BUPIVACAIN-EPI 0.25%-1:200,000 30 ML VIAL SQ ONE ×3 (09:34→09:47)
[2022-07-09] MEDS ORDERED: PROPOFOL 10 MG/ML 20 ML VIAL IV ONE (09:36)
[2022-07-09] MEDS ORDERED: fentaNYL (PF) 50 MCG/ML 2 ML AMP ONE (09:36)
[2022-07-09] MEDS ORDERED: MIDAZOLAM 2 MG/2 ML VIAL ONE (09:36)
--- NOTE | 2022-07-09 09:59 | P.OP ---
Date of Procedure: 07/09/22 Preoperative Diagnosis: History of colon cancer Postoperative Diagnosis: History of colon cancer Procedure(s) Performed: Removal of right subclavian Port-A-Cath Anesthesia: PRACHI Surgeon: Dioni Weinstein Estimated Blood Loss (ml): 5 Pathology: none sent Condition: stable Disposition: PACU Description of Procedure: The patient's placed on the operative table in the supine position. Patient received IV sedation. The chest was prepped and draped in sterile fashion. The skin was anesthetized 1% local Xylocaine. Skin was incised over the port site using blunt and sharp dissection with cautery the port was dissected free. The wound was inspected for hemostasis. There is no bleeding seen. Skin was closed interrupted 3-0 Monocryl suture. Dermabond was applied. Patient tolerated the procedure well was sent to recovery room stable condition.
[2022-07-09 10:17] VITALS: BP 130/61; PULSE 61
== END 2022-07-09 10:45 | disposition home or self-care (01) ==
LOC: OR 08:18
PROVIDERS: ATTEND Surgery
DX: Z45.2 Encounter for adjustment and management of vascular access device (principal); Z85.038 Personal history of other malignant neoplasm of large intestine; J44.9 Chronic obstructive pulmonary disease, unspecified; E11.9 Type 2 diabetes mellitus without complications; E78.5 Hyperlipidemia, unspecified; I10 Essential (primary) hypertension; M19.90 Unspecified osteoarthritis, unspecified site; E07.9 Disorder of thyroid, unspecified; K44.9 Diaphragmatic hernia without obstruction or gangrene; K80.20 Calculus of gallbladder without cholecystitis without obstruction; Z98.84 Bariatric surgery status; Z90.710 Acquired absence of both cervix and uterus; Z98.890 Other specified postprocedural states; Z95.0 Presence of cardiac pacemaker; Z87.891 Personal history of nicotine dependence; Z80.9 Family history of malignant neoplasm, unspecified; Z79.899 Other long term (current) drug therapy; Z79.890 Hormone replacement therapy; Z79.1 Long term (current) use of non-steroidal anti-inflammatories (NSAID); Z79.84 Long term (current) use of oral hypoglycemic drugs
CPT/HCPCS: 36590; J2250; J1100; J0690; J2405; J3010; J2704; J1644

== ENCOUNTER → 2024-11-30 | Outpatient (CLI) | payer MEDICARE ==
[2024-11-30 15:16] LABS: African American GFR (CKD) 46 (>60 ml/min/1.73 sqM); Blood Urea Nitrogen 35 mg/dL (7-17); Non-African American GFR(CKD) 39 (>60 ml/min/1.73 sqM)
--- NOTE | 2024-11-30 16:51 | CT ---
EXAMINATION TYPE: CT ChestAbdPelvis wo con CT DLP: 546.4 mGycm, Automated exposure control for dose reduction was used. DATE OF EXAM: 11/30/2024 4:34 PM COMPARISON: PET/CT 11/07/2018, CT abdomen and pelvis 10/01/2018, 06/30/2017, 03/21/2017 CLINICAL INDICATION:Female, 84 years old with history of J90 PLEURAL EFFUSION, NOT ELSEWHERE CL C18.9 R35.0; PHH, SOB, with abdominal pain Technique: Multiple axial images of the chest, abdomen, and pelvis were obtained without the administ ration of intravenous contrast due to poor kidney function. Oral contrast was administered. Two-dimen sional coronal and sagittal reconstructions were obtained. Findings: CHEST: LUNGS/ PLEURA: Small bilateral pleural effusions with right greater than left. No pneumothorax. Minim al biapical pleural-parenchymal scarring. Mild centrilobular emphysematous changes. No suspicious pu lmonary nodule or mass. AIRWAY: Patent and unremarkable.. HEART: Cardiomegaly is demonstrated.Left chest wall cardiac pacemaker device with leads terminating i n the right atrium and right ventricle.. No pericardial effusion. Moderate coronary artery calcificat ions present. MEDIASTINUM: No gross evidence of adenopathy. Left calcified hilar granulomas. VASCULATURE: Atherosclerotic calcifications are present throughout the aorta and its branches. No th oracic aortic aneurysm. MUSCULOSKELETAL: Bilateral shoulder arthropathy. Healing anterior right second and third rib fracture s with callus formation. Multilevel degenerative disc disease. SOFT TISSUES/LYMPH NODES: Unremarkable. LOWER NECK: No significant findings. ABDOMEN: ABDOMEN LIVER: Unremarkable noncontrast appearance. GALLBLADDER AND BILE DUCTS: The gallbladder is surgically absent. No biliary ductal dilatation. PANCREAS: Unremarkable. SPLEEN: Scattered calcified granulomas. ADRENAL GLANDS: Unremarkable. KIDNEYS AND URETERS: No evidence of hydronephrosis or renal calculus. Right renal upper pole 2.1 cm c yst. No follow up recommended. PELVIS BLADDER: Unremarkable REPRODUCTIVE: Unremarkable. ABDOMEN & PELVIS STOMACH AND BOWEL: Small hiatal hernia, duodenum is unremarkable. No evidence of bowel obstruction. P ostsurgical changes from right hemicolectomy. Mild prominence of the proximal colon measuring up to 5 .7 cm. Enteric contrast is reaches the descending colon. No focal bowel wall thickening or surroundin g inflammatory changes identified. PERITONEUM: No evidence of pneumoperitoneum or free fluid. VASCULATURE: Moderate atherosclerotic calcifications are present throughout the abdominal aorta and i ts branches. No abdominal aortic aneurysm. MUSCULOSKELETAL: No acute osseous abnormalities. Bilateral hip arthroplasty changes. This creates str eak artifact which limits evaluation. Multilevel degenerative disc disease. Grade 1 anterolisthesis o f L3 on L4. Similar diffuse mixed sclerotic/lytic appearance of the sacrum. Dextrocurvature of the laurent mbar spine. LYMPH NODES: No gross evidence for lymphadenopathy. SOFT TISSUE/ABDOMINAL WALL: Calcifications within the bilateral hip subcutaneous tissues likely relat ed to postsurgical changes related to fat necrosis. IMPRESSION: 1. No definitive evidence for recurrence or metastatic disease within the limitations of a noncontras t intravenous exam. 2. Small bilateral pleural effusions right greater than. 3. Stable abnormal mixed sclerotic/lytic appearance of the sacrum dating back to 2017. Etiologies inc lude previous irradiation changes versus Paget's disease versus treated metastasis. 4. Healing anterior right second and third rib fractures with callus formation. 5. Mild emphysematous changes. [facility], , 11/30/2024 4:49 PM
== END | disposition home or self-care (01) ==
LOC: RADCTMAIN 14:32
PROVIDERS: ATTEND Family Medicine
DX: S22.41XD Multiple fractures of ribs, right side, subsequent encounter for fracture with routine healing (principal); J90 Pleural effusion, not elsewhere classified; C18.9 Malignant neoplasm of colon, unspecified; R35.0 Frequency of micturition; J43.9 Emphysema, unspecified
CPT/HCPCS: 36415; 71250; 74176; 82565; 84520